=== PATIENT | male | born 1945 | race Caucasian/White ===

== ENCOUNTER 2017-05-21 18:12 | Inpatient (IN) | payer MEDICARE, OTHER ==
[~2017-05-21] VITALS: Ht 175.3 cm; Wt 76.3 kg
--- NOTE | 2017-05-21 18:19 | NUR ---
C/O BUE SHARP TINGLING PAIN. BS OVER 600 FROM HOME STATED BY KISHORE. NON COMPLIANT OF MEDS. PLACED ON MONITOR NATALIO KEE ORDER
[2017-05-21] MEDS ORDERED: IV NS 0.9% 1,000 ML BAG IV ONE (18:30)
--- NOTE | 2017-05-21 18:41 | NUR ---
LAC #18 IV ACCESS. BLOOD SAMPLE COLLECTED SENT TO LAB
--- NOTE | 2017-05-21 18:42 | NUR ---
EKG IN PROGRESS
[2017-05-21 18:54] LABS: BASOPHILS % (AUTO) 0.3 % (0.0-2.0); EOSINOPHILS # (AUTO) 0.2 /CMM (0.0-0.7); EOSINOPHILS % (AUTO) 2.3 % (0.0-6.0); HEMATOCRIT 35 % (39-51); HEMOGLOBIN 12.3 g/dL (13.5-17.5); LYMPHOCYTES # (AUTO) 1.5 /CMM (0.8-4.8); LYMPHOCYTES % (AUTO) 17.9 % (20.0-44.0); MEAN CORPUSCULAR HEMOGLOBIN 29 PG (26.0-33.0); MEAN CORPUSCULAR HGB CONC 35 g/dl (31.0-36.0); MEAN CORPUSCULAR VOLUME 84 fL (80-96); MONOCYTES # (AUTO) 0.5 /CMM (0.1-1.30); NEUTROPHILS # (AUTO) 6.4 /CMM (1.8-8.9); NEUTROPHILS % (AUTO) 73.5 % (43.0-81.0); PLATELET COUNT (AUTO) 173 /CMM (150-450); RDW COEFFICIENT OF VARIATION 12.1 (11.5-15.0); RED BLOOD CELL COUNT(AUTO) 4.21 MIL/uL (4.5-6.0); WHITE BLOOD COUNT (AUTO) 8.6 K/uL (4.3-11.0)
[2017-05-21 19:11] LABS: ALANINE AMINOTRANSFERASE 15 U/L (12-78); ALBUMIN 2.4 g/dL (3.4-5.0); ALKALINE PHOSPHATASE 186 U/L (46-116); ASPARTATE AMINOTRANSFERASE 12 U/L (15-37); BILIRUBIN,TOTAL 0.3 mg/dL (0.2-1.0); CALCIUM, SERUM 8.8 mg/dL (8.5-10.1); CARBON DIOXIDE 26 mmol/L (21-32); CHLORIDE 93 mmol/L (98-107); CREATININE 3.1 mg/dL (0.6-1.3); LIPASE 1248 U/L (73-393); POTASSIUM 4.4 mmol/L (3.5-5.1); SODIUM SERUM 126 mmol/L (136-145); TOTAL PROTEIN, SERUM 6.6 g/dL (6.4-8.2); UREA NITROGEN, BLOOD 57 mg/dL (7-18)
[2017-05-21 19:13] LABS: GLUCOSE 490 mg/dL (74-106); TROPONIN I < 0.017 ng/mL (0.00-0.056)
--- NOTE | 2017-05-21 19:15 | NUR ---
REPORT REC'D FROM REBECA [place] FOR TARAH. DR. WAN AT THE BEDSIDE SPEAKING TO THE PT.
--- NOTE | 2017-05-21 19:20 | NUR ---
PT IN CT.
[2017-05-21] MEDS ORDERED: INSULIN REGULAR, HUMAN 100 UNIT/ML 10 ML VIAL ONE (19:23)
--- NOTE | 2017-05-21 19:25 | NUR ---
PT RETURNED FROM CT.
[2017-05-21] MEDS ORDERED: INSULIN REGULAR, HUMAN 100 UNIT/ML 10 ML VIAL IV ONE (19:30)
--- NOTE | 2017-05-21 19:34 | NUR ---
CALLED [employer] VICE PRESIDENT AND PORTFOLIO MANAGER WAS PAGED.
[2017-05-21 19:44] LABS: APPEARANCE,URINE Clear (CLEAR); BILIRUBIN,URINE Negative (NEGATIVE); BLOOD, URINE Small Ery/uL (NEGATIVE); COLOR,URINE Yellow (YELLOW); KETONES,URINE Negative (NEGATIVE); LEUKOCYTE ESTERASE ,URINE Negative (NEGATIVE); NITRITE, URINE Negative (NEGATIVE); PROTEIN,URINE >=300 mg/dl (NEGATIVE); UGLUCOSE 500 MG/DL mg/dL (NEGATIVE); UROBILINOGEN,URINE 0.2 EU/dL (0.2)
[2017-05-21 19:54] LABS: BACTERIA,URINE Moderate /HPF (None Seen); SQUAMOUS EPITHELIAL CELL,UR Few /HPF (None Seen); WBC,URINE 0-2 /HPF (0-3)
[2017-05-21 19:55] LABS: URINE AMORPHOUS URATE Moderate /HPF (None Seen)
--- NOTE | 2017-05-21 20:10 | NUR ---
CALLING REPORT TO MS NURSE.
--- NOTE | 2017-05-21 20:18 | NUR ---
REPORT GIVEN TO REBECA LUONG.
[2017-05-21] MEDS ORDERED: MAG HYDROX/AL HYDROX/SIMETH 30 ML UDC PO PRN ×2 (20:30→20:45)
[2017-05-21] MEDS ORDERED: ACETAMINOPHEN 325 MG TABLET PO PRN ×2 (20:30→20:45)
[2017-05-21] MEDS ORDERED: HYDROCODONE/APAP 5/325MG 1 EACH TABLET PO PRN (20:30)
[2017-05-21] MEDS ORDERED: ONDANSETRON HCL/PF 4 MG/2 ML VIAL IVP PRN ×2 (20:30→20:45)
[2017-05-21] MEDS ORDERED: Z GUARD REMEDY 2 OZ OINT TP PRN (20:30)
[2017-05-21] MEDS ORDERED: MAGNESIUM HYDROXIDE 30 ML UDC PO PRN ×2 (20:30→20:45)
[2017-05-21 21:00] VITALS: BP 155/82
--- NOTE | 2017-05-21 21:15 | NUR ---
RN NOTES NEW ADMISSION ARRIVED FROM UNIT, ALERT AND ORIENTED X3, ITALIAN SPEAKING ONLY, NO SOB, NO RESPIRATORY DISTRESS, TOLERATING ROOM AIR, SPO2 98%, AFEBRILE, ON AUSCULTATION, LUNG SOUNDS ARE CLEAR IN ALL ROSALES, ABDOMEN SOFT AND NON-TENDER, ACTIVE BOWEL SOUNDS, NO TENDERNESS, NO S/S OF HYPERGLYCEMIA, LEFT AC PERIPHERAL LINE IS PATENT AND SECURED WITH DRESSING, SKIN INTACT TO SACRAL AREA, MULTIPLE SCRATCH TIPTON WITH SCABS NOTED TO BLE, NO EDEMA, CONTINENT OF BOWEL AND BLADDER, ABLE TO AMBULATE USING ONE POINT CANE, DEMONSTRATED USE OF CALL LIGHT, WILL CONTINUE TO MONITOR.
[2017-05-21 21:30] VITALS: BP 155/82
[2017-05-21] MEDS: IV NS 0.9% 1,000 ML IV PRN (22:03)
[2017-05-21] MEDS ORDERED: ASPI81TA2 PO (23:04)
[2017-05-21] MEDS ORDERED: FURO-144 PO (23:04)
[2017-05-21] MEDS ORDERED: TAMS-12 PO (23:04)
[2017-05-21] MEDS ORDERED: INSU3INS6 SUBCUT (23:04)
[2017-05-21] MEDS ORDERED: CARV12.52 PO (23:04)
--- NOTE | 2017-05-21 23:06 | NUR ---
RN NOTES NOTIFIED DR. BENÍTEZ REGARDING HOME MEDICATIONS. PER MD, SHOULD INPUT THEM FIRST IN THE COMPUTER. ALSO NOTIFIED FOR ELEVATED BP OF 159/83. NEW ORDERS OF LEVEMIR 20 UNITS AND AGGRESSIVE ISS, ORDERS NOTED AND CARRIED OUT.
[2017-05-21] MEDS: BLOOD SUGAR DIAGNOSTIC 1 EACH STRIP IN SCH (23:16)
[2017-05-21] MEDS: *INSULIN REGULAR(HUMULIN R)HUM 100 UNIT/ML VIAL SQ PRN (23:18)
[2017-05-21] MEDS: INSULIN DETEMIR 100 UNIT/ML CARTRIDGE SQ SCH (23:21)
[2017-05-21] MEDS ORDERED: DEXTROSE 50%-WATER 50 ML DISP.SYRIN IV PRN (23:30)
[2017-05-21] MEDS ORDERED: TAMSULOSIN 0.4 MG CAP.SR.24H ONE (23:40)
[2017-05-21] MEDS ORDERED: CARVEDILOL 12.5 MG TABLET ONE (23:41)
[2017-05-21] MEDS: CARVEDILOL 12.5 MG TABLET PO SCH (23:42)
[2017-05-21] MEDS: TAMSULOSIN 0.4 MG CAP.SR.24H PO SCH (23:42)
--- NOTE | 2017-05-21 23:48 | NUR ---
RN NOTES PERFORMED ACCUCHECK, BG 360 MG/DL, PROVIDED SNACKS, PATIENT ABLE TO EAT.
--- NOTE | 2017-05-22 06:40 | NUR ---
RN NOTES PATIENT IS ALERT AND AWAKE, NO SOB, NO DISTRESS, DENIES ANY PAIN AT THIS TIME, BG 318 MG/DL, WILL GIVE INSULIN 16 UNITS. NO S/S OF HYPERGLYCEMIA. LEFT AC PERIPHERAL LINE IS PATENT AND INFUSING WELL. NEEDS ATTENDED, CALL LIGHT WITHIN REACH.
[2017-05-22] MEDS: BLOOD SUGAR DIAGNOSTIC 1 EACH STRIP IN SCH ×4 (06:57→21:32)
[2017-05-22] MEDS: INSULIN REGULAR, HUMAN 100 UNIT/ML 3 ML VIAL SQ PRN ×3 (06:58→17:49)
[2017-05-22 07:13] LABS: BASOPHILS % (AUTO) 0.4 % (0.0-2.0); EOSINOPHILS # (AUTO) 0.3 /CMM (0.0-0.7); EOSINOPHILS % (AUTO) 2.8 % (0.0-6.0); HEMATOCRIT 35 % (39-51); HEMOGLOBIN 11.8 g/dL (13.5-17.5); LYMPHOCYTES # (AUTO) 1.9 /CMM (0.8-4.8); LYMPHOCYTES % (AUTO) 20.7 % (20.0-44.0); MEAN CORPUSCULAR HEMOGLOBIN 29 PG (26.0-33.0); MEAN CORPUSCULAR HGB CONC 34 g/dl (31.0-36.0); MEAN CORPUSCULAR VOLUME 86 fL (80-96); MONOCYTES # (AUTO) 0.5 /CMM (0.1-1.30); NEUTROPHILS # (AUTO) 6.3 /CMM (1.8-8.9); NEUTROPHILS % (AUTO) 70.1 % (43.0-81.0); PLATELET COUNT (AUTO) 147 /CMM (150-450); RDW COEFFICIENT OF VARIATION 13.1 (11.5-15.0); RED BLOOD CELL COUNT(AUTO) 4.07 MIL/uL (4.5-6.0)
[2017-05-22 07:37] LABS: CHOLESTEROL 178 mg/dL (<200); HDL CHOLESTEROL 37 mg/dL (40-60); LDL 47 mg/dL (0-99); THYROID STIMULATING HORMONE 0.431 uIU/mL (0.358-3.74); TRIGLYCERIDES 678 mg/dL (30-150)
[2017-05-22 07:40] LABS: ALANINE AMINOTRANSFERASE 16 U/L (12-78); ALKALINE PHOSPHATASE 154 U/L (46-116); ASPARTATE AMINOTRANSFERASE 16 U/L (15-37); BILIRUBIN,TOTAL 0.2 mg/dL (0.2-1.0); CALCIUM, SERUM 9.1 mg/dL (8.5-10.1); CARBON DIOXIDE 21 mmol/L (21-32); CHLORIDE 102 mmol/L (98-107); CREATININE 2.4 mg/dL (0.6-1.3); GLUCOSE 310 mg/dL (74-106); LIPASE 393 U/L (73-393); MAGNESIUM 1.9 mg/dL (1.8-2.4); POTASSIUM 3.9 mmol/L (3.5-5.1); SODIUM SERUM 133 mmol/L (136-145); TOTAL PROTEIN, SERUM 5.8 g/dL (6.4-8.2); UREA NITROGEN, BLOOD 50 mg/dL (7-18)
--- NOTE | 2017-05-22 07:58 | NUR ---
RN OPENING NOTES RN OPENING NOTES RECEIVED PATIENT RESTING COMFORTABLY. AOX4. BARBADIAN SPEAKING. DENIES ANY PAIN. DENIES CP OR SOB. IV ACCESS PATENT AND INTACT LAC 18G NS @75ML/HR. RESPIRATIONS EVEN AND UNLABORED. NO ACUTE DISTRESS. BED LOCKED IN THE LOWEST POSITION WITH SIDE RAILS UP X2. CALL LIGHT WITHIN REACH. WILL CONTINUE TO MONITOR, ASSESS AND EDUCATE PATIENT THROUGHOUT SHIFT.
[2017-05-22 08:00] VITALS: BP 149/93
[2017-05-22] MEDS: ASPIRIN 81 MG TAB.CHEW PO SCH (08:44)
[2017-05-22] MEDS: CARVEDILOL 12.5 MG TABLET PO SCH ×2 (08:45→17:50)
--- NOTE | 2017-05-22 09:21 | NUR ---
RN NOTES IV DISLODGED. WILL PLACE NEW IV ACCESS.
--- NOTE | 2017-05-22 11:00 | NUR ---
RN NOTES NEW IV PLACED IN THE LEFT AC 20G. PATENT AND INTACT NO S/S OF INFILTRATION. ONE ATTEMPT TOLERATED WELL. NS AT 75ML/HR. WILL CONTINUE TO MONITOR.
[2017-05-22 16:00] VITALS: BP 157/86
[2017-05-22 19:25] LABS: APPEARANCE,URINE CLEAR (CLEAR); BILIRUBIN,URINE NEGATIVE (NEGATIVE); BLOOD, URINE 1+ Ery/uL (NEGATIVE); COLOR,URINE YELLOW (YELLOW); KETONES,URINE NEGATIVE (NEGATIVE); LEUKOCYTE ESTERASE ,URINE NEGATIVE (NEGATIVE); NITRITE, URINE NEGATIVE (NEGATIVE); PROTEIN,URINE 3+ mg/dl (NEGATIVE); UGLUCOSE 2+ mg/dL (NEGATIVE); UROBILINOGEN,URINE 0.2 EU/dL (0.2)
--- NOTE | 2017-05-22 19:30 | NUR ---
MS RN INITIAL NOTES RECEIVED PT IN BED AWAKE,VERBALLY RESPONSIVE,SWISS SPEAKING.ON ROOM AIR NO SOB,RESPIRATIONS EVEN, UNLABORED. DENIES ANY PAIN OR DISCOMFORT AT THIS TIME.CALL LIGHT WITHIN REACH.ATTENDED ALL NEEDS.WILL CONTINUE TO MONITOR ACCORDINGLY
[2017-05-22 19:38] LABS: BACTERIA,URINE 1+ /HPF (None Seen); SQUAMOUS EPITHELIAL CELL,UR 0-2 /HPF (None Seen)
--- NOTE | 2017-05-22 19:39 | NUR ---
RN CLOSING NOTES PATIENT RESTING COMFORTABLY IN BED. PATIENT DENIES ANY PAIN, SOB OR CP. AOX4. IV ACCESS PATENT AND INTACT. RESPIRATIONS EVEN AND UNLABORED. NO ACUTE DISTRESS NOTED. BED LOCKED IN THE LOWEST POSITION WITH SIDE RAILS UP. CALL LIGHT WITHIN REACH. ALL NEEDS MET. ALL MEDS GIVEN APPROPRIATE. WILL ENDORSE TO NIGHT RN FOR TARAH.
[2017-05-22 19:43] LABS: CREATININE, URINE 49.2 MG/DL (30.0-125.0)
[2017-05-22] MEDS: IV NS 0.9% 1,000 ML IV PRN (19:45)
[2017-05-22 20:50] LABS: URINE TOTAL PROTEIN 496.2 mg/dL (0-11.9)
[2017-05-22 21:22] LABS: EOSINOPHIL,URINE None Seen
[2017-05-22] MEDS: TAMSULOSIN 0.4 MG CAP.SR.24H PO SCH (21:32)
[2017-05-22 21:44] VITALS: BP 168/93
[2017-05-22] MEDS: INSULIN DETEMIR 100 UNIT/ML CARTRIDGE SQ SCH (21:46)
[2017-05-22] MEDS: *INSULIN REGULAR(HUMULIN R)HUM 100 UNIT/ML VIAL SQ PRN (21:49)
[2017-05-22 22:00] VITALS: BP 150/68
[2017-05-22] MEDS ORDERED: ZOLPIDEM TARTRATE 5 MG TABLET PO PRN (22:00)
--- NOTE | 2017-05-22 23:20 | NUR ---
Recieved pt from Rn. A/O x3 Viraj speaking on R/a IV N.S 09% at 75 cchr to left Ac no edema or redness to iv site. Siderails up call light within reach. bed in lowest postion wheels locked. Denies of any distress.
--- NOTE | 2017-05-23 04:36 | NUR ---
Remain lying in bed denies of any distress Iv patent.
[2017-05-23 06:28] LABS: BASOPHILS % (AUTO) 0.3 % (0.0-2.0); EOSINOPHILS # (AUTO) 0.2 /CMM (0.0-0.7); EOSINOPHILS % (AUTO) 2.3 % (0.0-6.0); HEMATOCRIT 35 % (39-51); HEMOGLOBIN 12.1 g/dL (13.5-17.5); LYMPHOCYTES # (AUTO) 2.2 /CMM (0.8-4.8); LYMPHOCYTES % (AUTO) 24.1 % (20.0-44.0); MEAN CORPUSCULAR HEMOGLOBIN 29 PG (26.0-33.0); MEAN CORPUSCULAR HGB CONC 35 g/dl (31.0-36.0); MEAN CORPUSCULAR VOLUME 85 fL (80-96); MONOCYTES # (AUTO) 0.6 /CMM (0.1-1.30); MONOCYTES % (AUTO) 5.9 % (2.0-12.0); NEUTROPHILS # (AUTO) 6.3 /CMM (1.8-8.9); NEUTROPHILS % (AUTO) 67.4 % (43.0-81.0); PLATELET COUNT (AUTO) 152 /CMM (150-450); RDW COEFFICIENT OF VARIATION 13.4 (11.5-15.0); RED BLOOD CELL COUNT(AUTO) 4.11 MIL/uL (4.5-6.0); WHITE BLOOD COUNT (AUTO) 9.3 K/uL (4.3-11.0)
[2017-05-23 06:48] LABS: ALANINE AMINOTRANSFERASE 16 U/L (12-78); ALKALINE PHOSPHATASE 139 U/L (46-116); ASPARTATE AMINOTRANSFERASE 15 U/L (15-37); BILIRUBIN,TOTAL 0.2 mg/dL (0.2-1.0); CALCIUM, SERUM 8.6 mg/dL (8.5-10.1); CARBON DIOXIDE 24 mmol/L (21-32); CHLORIDE 110 mmol/L (98-107); CREATININE 1.9 mg/dL (0.6-1.3); GLUCOSE 171 mg/dL (74-106); LIPASE 310 U/L (73-393); MAGNESIUM 1.9 mg/dL (1.8-2.4); PHOSPHORUS 3.4 mg/dL (2.5-4.9); POTASSIUM 4.1 mmol/L (3.5-5.1); SODIUM SERUM 142 mmol/L (136-145); TOTAL PROTEIN, SERUM 5.7 g/dL (6.4-8.2); UREA NITROGEN, BLOOD 35 mg/dL (7-18)
[2017-05-23] MEDS: BLOOD SUGAR DIAGNOSTIC 1 EACH STRIP IN SCH ×3 (06:59→16:29)
[2017-05-23] MEDS: INSULIN REGULAR, HUMAN 100 UNIT/ML 3 ML VIAL SQ PRN ×3 (07:03→16:32)
[2017-05-23 07:10] LABS: CREATINE KINASE, TOTAL 77 U/L (39-308)
--- NOTE | 2017-05-23 07:45 | NUR ---
MS RN NOTES RECEIVED REPORT FROM STEWART/REBECA. PATIENT IN BED, AWAKE. A/O X3 SOUTH AFRICAN SPEAKING. PATIENT APPEARS COMFORTABLE, DENIES ANY DISCOMFORT. IVC IN LEFT AC G18 PATENT AND INTACT, IV NS INFUSING AT 75ML/HR. CALL LIGHT WITHIN REACH. WILL CONT TO MONITOR.
[2017-05-23 08:00] VITALS: BP 153/83
--- NOTE | 2017-05-23 08:00 | NUR ---
MS RN NOTES RECEIVED PATIENT IN BED, AWAKE. A/O X3 PERSIAN SPEAKING. PATIENT APPEARS COMFORTABLE, DENIES ANY DISCOMFORT. IVC IN LEFT AC G18 PATENT AND INTACT, IV NS INFUSING AT 75ML/HR. CALL LIGHT WITHIN REACH. WILL CONT TO MONITOR.
[2017-05-23] MEDS: CARVEDILOL 12.5 MG TABLET PO SCH ×2 (09:13→16:29)
[2017-05-23] MEDS: ASPIRIN 81 MG TAB.CHEW PO SCH (09:13)
--- NOTE | 2017-05-23 10:03 | NUR ---
REPORT GIVEN TO HELADIO/REBECA FOR CONTINUITY OF CARE.
[2017-05-23 16:00] VITALS: BP 153/68
[2017-05-23 16:29] VITALS: BP 153/68
--- NOTE | 2017-05-23 17:30 | NUR ---
DISCHARGE INSTRUCTIONS,MED RECONCILIATION,MED AND HEALTH TEACHING GIVEN TO PT WITH BLOOD SUGAR CHECKS AND INSULIN ADMINISTRATION PER SLIDING SCALE AND HS LANTUS WITH RETURN DEMO GIVEN BY PT'S SON,NANETTE.FAMILY AT BEDSIDE.DISCHARGED PT HOME WITH STABLE V/S.DENIES ANY PAIN OR DISTRESS.
[2017-05-24 12:15] LABS: PTH, INTACT 83 pg/mL (15-65)
[2017-05-25 08:18] LABS: *SPE A/G RATIO 0.8 (0.7-1.7); *SPE ALBUMIN 2.3 g/dL (2.9-4.4); *SPE ALPHA-1-GLOBULIN 0.2 g/dL (0.0-0.4); *SPE ALPHA-2-GLOBULIN 1.2 g/dL (0.4-1.0); *SPE BETA GLOBULIN 0.9 g/dL (0.7-1.3); *SPE GLOBULIN, TOTAL 2.8 g/dL (2.2-3.9); *SPE M-SPIKE Not Observed g/dL (Not Observed); *SPEGAMMA GLOBULIN 0.6 g/dL (0.4-1.8)
== END 2017-05-23 17:30 | disposition home or self-care (01) | DRG 438 ==
LOC: ER 18:14 → MED 21:01
PROVIDERS: ADMIT Internal Medicine; ATTEND Internal Medicine
DX: K85.90 Acute pancreatitis without necrosis or infection, unspecified (principal); N17.0 Acute kidney failure with tubular necrosis; E87.1 Hypo-osmolality and hyponatremia; E78.5 Hyperlipidemia, unspecified; E86.0 Dehydration; I12.9 Hypertensive chronic kidney disease with stage 1 through stage 4 chronic kidney disease, or unspecified chronic kidney disease; K21.9 Gastro-esophageal reflux disease without esophagitis; N18.9 Chronic kidney disease, unspecified; N40.0 Benign prostatic hyperplasia without lower urinary tract symptoms; E11.65 Type 2 diabetes mellitus with hyperglycemia; E11.40 Type 2 diabetes mellitus with diabetic neuropathy, unspecified; Z79.4 Long term (current) use of insulin; K57.30 Diverticulosis of large intestine without perforation or abscess without bleeding; R16.0 Hepatomegaly, not elsewhere classified; E11.22 Type 2 diabetes mellitus with diabetic chronic kidney disease
CPT/HCPCS: 36415; 80048-TC; 80053-TC; 80061-TC; 80076-TC; 81000-TC; 82550-TC; 82570-TC; 82962-TC; 83690-TC; 83735-TC; 83970; 84100-TC; 84155; 84155-TC; 84165; 84300-TC; 84443-TC; 84484-TC; 85025-TC; 87081-TC; 87086-TC; A4606; J1815; J7030; Z7610

== ENCOUNTER 2017-10-27 16:36 | Inpatient (IN) | payer MEDICARE, OTHER ==
[~2017-10-27] VITALS: Ht 165.1 cm; Wt 79.4 kg
[~2017-10-27 16:36] MED LIST: ASPI-1169 PO; CARV12.52 PO; FURO-144 PO; INSU3INS6 SUBCUT; TAMS-12 PO
--- NOTE | 2017-10-27 16:36 | NUR ---
BIB FAMILY C/O MIDSTERNAL CP RADIATES TO BACK AND R ARM X 3 DAYS, ALSO C/O SOB. PLACED ON MONITOR. AWAITING MD ORDER
[2017-10-27] MEDS ORDERED: ASPIRIN 325 MG TABLET PO ONE (17:00)
[2017-10-27] MEDS ORDERED: FUROSEMIDE 40 MG/4 ML VIAL IV ONE (17:00)
[2017-10-27] MEDS ORDERED: ASPIRIN 325 MG TABLET ONE (17:05)
[2017-10-27] MEDS ORDERED: FUROSEMIDE 40 MG/4 ML VIAL ONE (17:05)
[2017-10-27 17:19] LABS: INR 0.92 (0.85-1.15)
[2017-10-27 17:24] LABS: TROPONIN I < 0.017 ng/mL (0.00-0.056)
[2017-10-27 17:29] LABS: ALANINE AMINOTRANSFERASE 17 U/L (12-78); ALKALINE PHOSPHATASE 141 U/L (46-116); ASPARTATE AMINOTRANSFERASE 18 U/L (15-37); B-TYPE NATRIURETIC PEPTIDE 1209 PG/ML (0-125); BILIRUBIN,DIRECT 0.1 mg/dL (0.0-0.2); BILIRUBIN,TOTAL 0.4 mg/dL (0.2-1.0); CALCIUM, SERUM 7.8 mg/dL (8.5-10.1); CARBON DIOXIDE 23 mmol/L (21-32); CHLORIDE 101 mmol/L (98-107); CREATININE 3.8 mg/dL (0.6-1.3); GLUCOSE 306 mg/dL (74-106); POTASSIUM 5.2 mmol/L (3.5-5.1); SODIUM SERUM 133 mmol/L (136-145); TOTAL PROTEIN, SERUM 6.2 g/dL (6.4-8.2); UREA NITROGEN, BLOOD 48 mg/dL (7-18)
[2017-10-27 17:32] LABS: BASOPHILS % (AUTO) 0.4 % (0.0-2.0); EOSINOPHILS % (AUTO) 1.9 % (0.0-6.0); HEMATOCRIT 31 % (39-51); HEMOGLOBIN 10.8 g/dL (13.5-17.5); LYMPHOCYTES # (AUTO) 0.7 /CMM (0.8-4.8); LYMPHOCYTES % (AUTO) 11.8 % (20.0-44.0); MEAN CORPUSCULAR HGB CONC 35 g/dl (31.0-36.0); MEAN CORPUSCULAR VOLUME 84 fL (80-96); MONOCYTES # (AUTO) 0.6 /CMM (0.1-1.30); MONOCYTES % (AUTO) 9.4 % (2.0-12.0); NEUTROPHILS # (AUTO) 4.8 /CMM (1.8-8.9); NEUTROPHILS % (AUTO) 76.5 % (43.0-81.0); PLATELET COUNT (AUTO) 151 /CMM (150-450); RDW COEFFICIENT OF VARIATION 13.4 (11.5-15.0); RED BLOOD CELL COUNT(AUTO) 3.69 MIL/uL (4.5-6.0); WHITE BLOOD COUNT (AUTO) 6.3 K/uL (4.3-11.0)
[2017-10-27] MEDS ORDERED: ZOLPIDEM TARTRATE 5 MG TABLET PO PRN (18:00)
[2017-10-27] MEDS ORDERED: Z GUARD REMEDY 2 OZ OINT TP PRN (18:00)
[2017-10-27] MEDS ORDERED: MORPHINE SULFATE INJ 4 MG/ML DISP.SYRIN IV PRN (18:00)
[2017-10-27] MEDS ORDERED: MAGNESIUM HYDROXIDE 30 ML UDC PO PRN (18:00)
[2017-10-27] MEDS ORDERED: ACETAMINOPHEN 325 MG TABLET PO PRN (18:00)
[2017-10-27] MEDS ORDERED: MAG HYDROX/AL HYDROX/SIMETH 30 ML UDC PO PRN (18:00)
--- NOTE | 2017-10-27 18:11 | NUR ---
GAVE REPORT TO CELINA JOSE CHEST PAIN ADMITTING DR SALDAÑA TELEMETRY
[2017-10-27] MEDS ORDERED: hydrALAZINE HCL 25 MG TABLET PO PRN (18:30)
[2017-10-27] MEDS ORDERED: DEXTROSE 50%-WATER 50 ML DISP.SYRIN IV PRN (18:30)
[2017-10-27] MEDS ORDERED: NITROGLYCERIN 0.4 MG/TAB BOTTLE SL PRN (18:30)
--- NOTE | 2017-10-27 19:01 | NUR ---
HAZARDOUS WASTE TECHNICIAN AT BEDSIDE
--- NOTE | 2017-10-27 19:55 | NUR ---
ADMISSION NOTES: RECEIVED REPORT FROM RN CELSO, PT ADMITTED FOR CHF AND CHEST PAIN, PT BROUGHT TO THE UNIT VIA GURNEY, FAMILY AT BED SIDE, PT ABLE TO AMBULATE WITH CANE, PT IS A/O X3 BENGALI SPEAKING ONLY, PLACED ON 2L O2 VIA NC, NOTED WHEEZING, PT REQUESTING FOR BREATHING TREATMENT. INFORMED RT HUNTER. VS TAKEN AND RECORDED. PT HAS LEFT AC G 18, PATENT AND FLUSHING WELL, ON HL. PLACED ON TELE MONITORING, SINUS RHYTHM HR 85, PT DENIES ANY CHEST PAIN AT THIS TIME, BUT C/O SOB, TRANSLATED BY FAMILY AT BED SIDE, ALSO PT'S FAMILY CLAIMED THAT PT BEEN ADMITTED TO THE HOSPITAL 2MONTHS AGO FOR CHF. DISCUSSED WITH FAMILY AND PT REGARDING PLAN OF CARE AND DIAGNOSIS OF THE PT. URINAL PLACED WITHIN REACH. ORIENTED PT TO UNIT POLICY AND HOURLY ROUNDING, USE OF CALL LIGHT. INVENTORY OF BELONGING COMPLETED BY ASSEMBLED WOOD PRODUCTS REPAIRER. SKIN CHECKED PERFORMED, AND NO SKIN ISSUES NOTED. SAFETY PRECAUTIONS FOR FALL INITIATE, CALL LIGHT IN REACH, WILL CONTINUE MONITORING PT.
[2017-10-27] MEDS: ALBUTEROL FS 2.5 MG/3 ML VIAL.NEB NEB PRN (19:59)
[2017-10-27 20:00] VITALS: BP 192/85
[2017-10-27 20:17] LABS: THYROID STIMULATING HORMONE 0.57 uIU/mL (0.358-3.74)
--- NOTE | 2017-10-27 20:20 | NUR ---
PRN APRESOLINE FOR BP 192/85: PT'S BLOOD PRESSURE IS ELEVATED,INITIALLY ITS 195/85 HR 88, RECHECK AFTER 30MINS AND RESULT IS 192/85 HR 88, PT DENIES ANY CHEST PAIN, STATED ITS MORE OF SHORTNESS OF BREATH AND PRESSURE, PRN APRESOLINE 25MG PO TABLET ADMINISTERED TO THE PT AT THIS TIME. ALSO CHECKED PT'S BLOOD SUGAR AND REVEAL 303, PT'S LAST MEAL WAS YESTERDAY ACCORDING TO PT AND FAMILY.
[2017-10-27] MEDS: BLOOD SUGAR DIAGNOSTIC 1 EACH STRIP VI SCH (20:42)
[2017-10-27] MEDS: *INSULIN REGULAR(HUMULIN R)HUM 100 UNIT/ML VIAL SQ PRN (20:44)
[2017-10-27] MEDS: INSULIN GLARGINE, 100 UNIT/ML CARTRIDGE SQ SCH (20:45)
--- NOTE | 2017-10-27 20:49 | NUR ---
BLOOD SUGAR 303: PT'S BLOOD SUGAR IS303, 8UBNITS OF INSULIN GIVEN PER SLIDING SCALE, PT ON CARDIAC DIET, ALSO WANTS TO EAT NOW HE'S LAST MEAL INTAKE WAS YESTERDAY MORNING. PER MD OKAY TO GIVE COVERAGE NOW AND LANTUS.
--- NOTE | 2017-10-27 21:00 | NUR ---
RNNOTES: PROVIDED SNACK TO THE PT PER PT'S REQUEST, EGG SAND WHICH AND CRANBERRY JUICE, PLACED ON HIGH LANIER'S POSITION, ASPIRATION PROTOCOL INITIATED, PT ATE SNACK 100%
[2017-10-27 21:25] VITALS: BP 162/97
--- NOTE | 2017-10-27 21:30 | NUR ---
RN NOTES: INFORMED PT REGARDING FLUID RESTRICTION, ONLY 1200ML PER DAY, MEANING 600ML PER 12HR SHIFT. PT UNDERSTAND AND AGREE. PT WAS GIVEN 600ML PITCHER OF WATER.
[2017-10-27] MEDS: TAMSULOSIN 0.4 MG CAP.SR.24H PO SCH (22:32)
[2017-10-27 22:34] VITALS: BP 160/81
[2017-10-28] VITALS (7 sets, daily range): BP systolic 136–187; BP diastolic 78–89
[2017-10-28 00:52] LABS: APPEARANCE,URINE CLEAR (CLEAR); BILIRUBIN,URINE NEGATIVE (NEGATIVE); BLOOD, URINE 1+ Ery/uL (NEGATIVE); COLOR,URINE YELLOW (YELLOW); KETONES,URINE NEGATIVE (NEGATIVE); LEUKOCYTE ESTERASE ,URINE NEGATIVE (NEGATIVE); NITRITE, URINE NEGATIVE (NEGATIVE); PH,URINE 6.5 (5.0-8.0); PROTEIN,URINE 3+ mg/dl (NEGATIVE); UGLUCOSE 2+ mg/dL (NEGATIVE); UROBILINOGEN,URINE 0.2 EU/dL (0.2)
[2017-10-28 00:57] LABS: BACTERIA,URINE None seen /HPF (None Seen); RBC,URINE 0-2 /HPF (0-2); SQUAMOUS EPITHELIAL CELL,UR Rare /HPF (None Seen); WBC,URINE 0-2 /HPF (0-3)
--- NOTE | 2017-10-28 03:14 | NUR ---
rn notes: pt denies any chest pain at this time, still noted with wheezing
[2017-10-28] MEDS: ALBUTEROL FS 2.5 MG/3 ML VIAL.NEB NEB PRN ×2 (03:33→08:09)
[2017-10-28] MEDS: BLOOD SUGAR DIAGNOSTIC 1 EACH STRIP VI SCH ×4 (05:58→21:33)
[2017-10-28] MEDS: INSULIN REGULAR, HUMAN 100 UNIT/ML 3 ML VIAL SQ PRN ×3 (06:00→17:26)
--- NOTE | 2017-10-28 06:00 | NUR ---
BS 263: BLOOD SUGAR 263, 9UNITS OF INSULIN GIVEN PER SLIDING SCALE, PT ON CARDIAC DIET
[2017-10-28 06:43] LABS: BASOPHILS % (AUTO) 0.5 % (0.0-2.0); EOSINOPHILS % (AUTO) 1.4 % (0.0-6.0); HEMATOCRIT 29 % (39-51); LYMPHOCYTES # (AUTO) 0.8 /CMM (0.8-4.8); LYMPHOCYTES % (AUTO) 13.4 % (20.0-44.0); MEAN CORPUSCULAR HGB CONC 35 g/dl (31.0-36.0); MEAN CORPUSCULAR VOLUME 85 fL (80-96); MONOCYTES # (AUTO) 0.7 /CMM (0.1-1.30); MONOCYTES % (AUTO) 12.7 % (2.0-12.0); NEUTROPHILS # (AUTO) 4.1 /CMM (1.8-8.9); PLATELET COUNT (AUTO) 129 /CMM (150-450); RDW COEFFICIENT OF VARIATION 13.6 (11.5-15.0); RED BLOOD CELL COUNT(AUTO) 3.39 MIL/uL (4.5-6.0); WHITE BLOOD COUNT (AUTO) 5.8 K/uL (4.3-11.0)
[2017-10-28 06:46] LABS: CALCIUM, SERUM 7.5 mg/dL (8.5-10.1); CARBON DIOXIDE 22 mmol/L (21-32); CHLORIDE 101 mmol/L (98-107); CREATININE 3.6 mg/dL (0.6-1.3); GLUCOSE 288 mg/dL (74-106); MAGNESIUM 1.6 mg/dL (1.8-2.4); PHOSPHORUS 5.6 mg/dL (2.5-4.9); POTASSIUM 4.7 mmol/L (3.5-5.1); SODIUM SERUM 133 mmol/L (136-145); UREA NITROGEN, BLOOD 52 mg/dL (7-18)
[2017-10-28 06:48] LABS: CHOLESTEROL 178 mg/dL (<200); HDL CHOLESTEROL 41 mg/dL (40-60); LDL 82 mg/dL (0-99); TRIGLYCERIDES 347 mg/dL (30-150)
--- NOTE | 2017-10-28 06:50 | NUR ---
rn closing notes: pt sitting in bed, a/o x3 remains on 2l oxygen via nc, denies any chest pain or discomfort at this time. iv access remains patent and flushing well, on hl. remains sinus rhythm hr 68. will relay to rn to hold breakfast till seen by scorer helper, for cardio consult today, echo complete, vs remains stable, needs attended, remains on fluid restriction.safety precautions for fall remains engaged, call light in reach, will endorse to day rn for celio.
--- NOTE | 2017-10-28 07:12 | NUR ---
MS RN OPENING NOTES RECEIVED PT FROM NIGHTSHIFT NURSE IN STABLE CONDITION. PT IS A/O X3. SOB NOTED. PT TO RECEIVE PRN BREATHING TREATMENT. PT ON 2L VIA NC AND SATING WELL. IV TO LEFT AC NOTED TO BE PATENT AND INTACT. NO REDNESS OR SIGNS OF INFILTRATION NOTED. BED IN LOW LOCKED POSITION, SIDE RAILS UP X2, CALL LIGHT WITHIN REACH. WILL CONTINUE TO MONITOR
[2017-10-28] MEDS ORDERED: LEVALBUTEROL HCL NEB 1.25 MG/0.5 ML VIAL.NEB IH SCH (08:00)
[2017-10-28 08:24] LABS: THYROID STIMULATING HORMONE 0.541 uIU/mL (0.358-3.74)
[2017-10-28 08:25] LABS: MAGNESIUM 1.8 mg/dL (1.8-2.4)
[2017-10-28 08:26] LABS: PHOSPHORUS 5.6 mg/dL (2.5-4.9)
[2017-10-28] MEDS: PANTOPRAZOLE 40 MG TABLET.DR PO SCH (08:26)
[2017-10-28] MEDS: ASPIRIN 81 MG TAB.CHEW PO SCH (08:26)
[2017-10-28] MEDS ORDERED: TRANEXAMIC ACID 1,500 MG in SODIUM CHLORIDE IRRIG SOLUTION 85 ML IR ONE (08:30)
[2017-10-28] MEDS ORDERED: FUROSEMIDE 40 MG TABLET PO SCH (09:00)
[2017-10-28] MEDS ORDERED: CARVEDILOL 12.5 MG TABLET PO SCH (09:00)
[2017-10-28] MEDS: HEPARIN SODIUM, PORCINE 5000 UNITS/1 ML VIAL SQ SCH ×2 (11:08→21:33)
[2017-10-28] MEDS: Magnesium 1GM/D5W 100ML PREMIX 100 ML IV SCH ×2 (12:10→13:46)
[2017-10-28] MEDS: GUAIFENESIN/CODEINE 10 ML UDC PO PRN ×2 (12:10→18:21)
[2017-10-28] MEDS ORDERED: Magnesium 1GM/D5W 100ML PREMIX PIGGYBACK IV ONE (13:00)
[2017-10-28] MEDS: ALBUTEROL FS 2.5 MG/0.5 ML VIAL.NEB NEB SCH ×2 (13:28→19:21)
--- NOTE | 2017-10-28 19:12 | NUR ---
MS RN CLOSING NOTES PT REMAINS STABLE. ALL NEEDS WERE MET DURING SHIFT AND ORDERS CARRIED OUT ACCORDINGLY. ALL DUE MEDS GIVEN. PT TO RECEIVE PRN BREATHING TREATMENT. HE WAS KEPT COMFORTABLE ALL THROUGHOUT SHIFT. SAFETY MEASURES REMAIN IN PLACE. WILL ENDORSE OT NIGHTSHIFT NURSE FOR TARAH
--- NOTE | 2017-10-28 20:00 | NUR ---
MS/RN OPENING NOTES PATIENT IN BED, ALERT, ORIENTED, BREATHING TREATMENT GIVEN BY RT 20 MINUTES AGO, OBSERVE COUGHING, KEPT BED UP, , SKIN WARM TO TOUCH, ON 2 LITER OXYGEN VIA NC, BED IN LOCK POSITION, CALL LIGHTS WITHIN REACH, WILL MONITOR.
--- NOTE | 2017-10-28 20:32 | NUR ---
MS/RN NOTES RECEIVED REPORT FROM REBECA KEY. RECEIVED PT. LYING IN BED RESTING. PT. IS EASILY AROUSABLE TO NAME. AWAKE, ALERT AND ORIENTED X3. BREATHING EVEN AND UNLABORED ON 2LPM O2 VIA NC. NO SOB, RESPIRATORY DISTRESS OR COMPLAINTS OF PAIN NOTED AT THIS TIME. PT. WITH LEFT AC 18 GAUGE SALINE LOCK PRESENT, PATENT AND INTACT. BED LOCKED AND IN LOWEST POSITION, SIDE RAILS UP X2, BED ALARM ON, CALL LIGHT WITHIN REACH, WILL CONTINUE TO MONITOR.
[2017-10-28] MEDS: TAMSULOSIN 0.4 MG CAP.SR.24H PO SCH (21:32)
[2017-10-28] MEDS: *INSULIN REGULAR(HUMULIN R)HUM 100 UNIT/ML VIAL SQ PRN (21:33)
[2017-10-28] MEDS: INSULIN GLARGINE, 100 UNIT/ML CARTRIDGE SQ SCH (21:34)
[2017-10-29] MEDS: ALBUTEROL FS 2.5 MG/0.5 ML VIAL.NEB NEB SCH ×4 (00:41→19:37)
--- NOTE | 2017-10-29 06:37 | NUR ---
MS/RN NOTES PT. IS LYING IN BED RESTING. BREATHING EVEN AND UNLABORED ON 2LPM O2 VIA NC. NO SOB, RESPIRATORY DISTRESS OR COMPLAINTS OF PAIN NOTED AT THIS TIME AND THROUGHOUT SHIFT. PT. WITH LEFT AC 18 GAUGE SALINE LOCK PRESENT, PATENT AND INTACT. ALL PT. NEEDS MET. BED LOCKED AND IN LOWEST POSITION, SIDE RAILS UP X2, BED ALARM ON, CALL LIGHT WITHIN REACH, WILL ENDORSE TO DAYSHIFT NURSE FOR CONTINUITY OF CARE.
[2017-10-29 07:03] LABS: ALANINE AMINOTRANSFERASE 16 U/L (12-78); ALBUMIN 1.7 g/dL (3.4-5.0); ALKALINE PHOSPHATASE 119 U/L (46-116); ASPARTATE AMINOTRANSFERASE 21 U/L (15-37); BILIRUBIN,TOTAL 0.3 mg/dL (0.2-1.0); CALCIUM, SERUM 7.9 mg/dL (8.5-10.1); CARBON DIOXIDE 24 mmol/L (21-32); CHLORIDE 99 mmol/L (98-107); CREATININE 3.6 mg/dL (0.6-1.3); GLUCOSE 184 mg/dL (74-106); MAGNESIUM 2.3 mg/dL (1.8-2.4); PHOSPHORUS 5.9 mg/dL (2.5-4.9); POTASSIUM 4.5 mmol/L (3.5-5.1); SODIUM SERUM 131 mmol/L (136-145); TOTAL PROTEIN, SERUM 5.9 g/dL (6.4-8.2); UREA NITROGEN, BLOOD 48 mg/dL (7-18)
--- NOTE | 2017-10-29 07:15 | NUR ---
MS RN NOTES' RECEIVED PATIENT IN BED ALERT ORIENTED X4. NO ACUTE DISTRESS NOTED. BREATHING UNLABORED. ON O2 @ 2 LPM VIA NC. DENIED ANY PAIN. IV ACCESS PATENT AND INTACT. SAFETY MEASURES IN PLACE. CALL LIGHT WITHIN REACH. WILL CONTINUE TO MONITOR ACCORDINGLY.
[2017-10-29 07:25] LABS: CREATINE KINASE, TOTAL 809 U/L (39-308)
[2017-10-29] MEDS: BLOOD SUGAR DIAGNOSTIC 1 EACH STRIP VI SCH ×4 (07:28→21:54)
[2017-10-29] MEDS: INSULIN REGULAR, HUMAN 100 UNIT/ML 3 ML VIAL SQ PRN ×3 (07:29→17:32)
[2017-10-29 07:33] LABS: BASOPHILS % (AUTO) 0.4 % (0.0-2.0); EOSINOPHILS % (AUTO) 0.9 % (0.0-6.0); HEMATOCRIT 28 % (39-51); HEMOGLOBIN 9.7 g/dL (13.5-17.5); LYMPHOCYTES # (AUTO) 0.9 /CMM (0.8-4.8); LYMPHOCYTES % (AUTO) 12.2 % (20.0-44.0); MEAN CORPUSCULAR HGB CONC 35 g/dl (31.0-36.0); MEAN CORPUSCULAR VOLUME 84 fL (80-96); MONOCYTES # (AUTO) 0.7 /CMM (0.1-1.30); MONOCYTES % (AUTO) 10.1 % (2.0-12.0); NEUTROPHILS # (AUTO) 5.7 /CMM (1.8-8.9); NEUTROPHILS % (AUTO) 76.4 % (43.0-81.0); PLATELET COUNT (AUTO) 151 /CMM (150-450); RDW COEFFICIENT OF VARIATION 13.5 (11.5-15.0); WHITE BLOOD COUNT (AUTO) 7.4 K/uL (4.3-11.0)
[2017-10-29 08:00] VITALS: BP 150/87
[2017-10-29 08:07] LABS: CREATINE KINASE MB 3.9 ng/mL (0-3.6)
[2017-10-29] MEDS: ASPIRIN 81 MG TAB.CHEW PO SCH (08:41)
[2017-10-29] MEDS: PANTOPRAZOLE 40 MG TABLET.DR PO SCH (08:41)
[2017-10-29] MEDS: HEPARIN SODIUM, PORCINE 5000 UNITS/1 ML VIAL SQ SCH ×2 (08:43→21:07)
[2017-10-29] MEDS: hydrALAZINE HCL 50 MG TABLET PO SCH ×3 (10:08→17:14)
[2017-10-29] MEDS: ALBUTEROL FS 2.5 MG/3 ML VIAL.NEB NEB PRN (12:08)
--- NOTE | 2017-10-29 13:38 | NUR ---
MS RN NOTES SEEN AND EVALUATED BY DR ALEXA SALDAÑA, WITH NEW ORDERS MADE. NOTED AND CARRIED OUT.
[2017-10-29] MEDS: methylPREDNISolone SOD SUCC 40 MG/ML VIAL IV SCH ×2 (13:44→17:14)
[2017-10-29] MEDS ORDERED: LEVOFLOXACIN (500MG) 500 MG TABLET PO ONE (15:00)
[2017-10-29 16:00] VITALS: BP 153/68
[2017-10-29] MEDS ORDERED: INSULIN REGULAR, HUMAN 100 UNIT/ML 10 ML VIAL SQ SCH (17:30)
--- NOTE | 2017-10-29 18:06 | NUR ---
MS RN NOTES PATIENT SITTING IN BED ALERT ORIENTED X 4, FAMILY AT BEDSIDE. NO ACUTE DISTRESS NOTED. BREATHING UNLABORED. ON 02 @ 2LPM VIA NC. IV ACCESS PATENT AND INTACT, NO BLEEDING OR SWELLING NOTED. DUE MEDICATIONS GIVEN, NO ASE NOTED.NEEDS ATTENDED AND ANTICIPATED. SAFETY MEASURES IN PLACE. CALL LIGHT WITHIN REACH. WILL CONTINUE TO MONITOR ACCORDINGLY. WILL ENDORSE TO NIGHT NURSE FOR CONTINUITY OF CARE.
--- NOTE | 2017-10-29 19:30 | NUR ---
RN NOTES: RECEIVED PATIENT AWAKE, SITTING ON THE CHAIR ADJACENT TO HER BED. SURROUNDED BY FAMILY MEMBERS,A/OX3,ON ROOM AIR SPO2-95%, NO SOB OR WHEEZING NOTED,FALL,SAFETY AND ASPIRATION PRECAUTION OBSERVED, KEOT CALL LIGHT WITHIN EASY REACH.HEP LOCK OF LAC G#18 INTACT/PATENT.KEPT ON CLOSE WATCH.
[2017-10-29 20:00] VITALS: BP 133/72
--- NOTE | 2017-10-29 20:13 | NUR ---
RN NOTES: PER RELATIVE PRESENT AT BED, PATIENT HAS NO BM FOR 2-3 DAYS ALREADY, MOM PRN GIVEN PER PATIENT REQUEST.
[2017-10-29] MEDS: TAMSULOSIN 0.4 MG CAP.SR.24H PO SCH (21:08)
[2017-10-29] MEDS: *INSULIN REGULAR(HUMULIN R)HUM 100 UNIT/ML VIAL SQ PRN (21:54)
[2017-10-29] MEDS: GUAIFENESIN/CODEINE 10 ML UDC PO PRN (21:58)
[2017-10-29] MEDS ORDERED: INSULIN GLARGINE, 100 UNIT/ML CARTRIDGE SQ SCH (22:00)
--- NOTE | 2017-10-29 22:12 | NUR ---
RN NOTES: 220 BLOOD SUGAR CHECK -319, REGULAR INSULIN GIVEN PER SCALE, ALSO LANTUS,PATIENT COMPLAINED OF ON AND OFF COUGH, OFFERED MEDS, WITH THE HELP OF SENIOR SYSTEMS ARCHITECT, HE AGREED, PRN MEDICATION GIVEN AT 2158.WILL CONTINUE TO MONITOR FOR SIGN OF HYPER/HYPOGLYCEMIA AND FOR ANY SOB AND DISCOMFORT.
[2017-10-30] MEDS: ALBUTEROL FS 2.5 MG/0.5 ML VIAL.NEB NEB SCH ×4 (01:14→19:30)
--- NOTE | 2017-10-30 03:28 | NUR ---
RN NOTES: ABLE TO SLEEP AND REST, AFTER NEBULIZATION RENDERED,NO WHEEZING NOTED, KEPT CALL LIGHT WITHIN EASY REACH.
[2017-10-30] MEDS: INSULIN REGULAR, HUMAN 100 UNIT/ML 3 ML VIAL SQ PRN ×4 (06:14→21:38)
[2017-10-30] MEDS: BLOOD SUGAR DIAGNOSTIC 1 EACH STRIP VI SCH ×4 (06:15→21:34)
[2017-10-30 06:17] LABS: BASOPHILS % (AUTO) 0.1 % (0.0-2.0); HEMATOCRIT 30 % (39-51); HEMOGLOBIN 10.1 g/dL (13.5-17.5); LYMPHOCYTES # (AUTO) 0.6 /CMM (0.8-4.8); LYMPHOCYTES % (AUTO) 8.2 % (20.0-44.0); MEAN CORPUSCULAR HGB CONC 34 g/dl (31.0-36.0); MEAN CORPUSCULAR VOLUME 85 fL (80-96); MONOCYTES # (AUTO) 0.2 /CMM (0.1-1.30); MONOCYTES % (AUTO) 3.1 % (2.0-12.0); NEUTROPHILS # (AUTO) 6.5 /CMM (1.8-8.9); NEUTROPHILS % (AUTO) 88.6 % (43.0-81.0); PLATELET COUNT (AUTO) 153 /CMM (150-450); RDW COEFFICIENT OF VARIATION 13.4 (11.5-15.0); RED BLOOD CELL COUNT(AUTO) 3.47 MIL/uL (4.5-6.0); WHITE BLOOD COUNT (AUTO) 7.4 K/uL (4.3-11.0)
--- NOTE | 2017-10-30 06:19 | NUR ---
RN NOTES: PATIENT AWAKE, STILL WITH ON AND OFF COUGH, BLOOD SUGAR CHECK-245, INSULIN GIVEN PER SCALE, AFTER HE RECEIVED HIS DOSE HE REQUEST TO DRINK APPLE JUICE,ON FLUID RESTRICTION,STRICTLY OBSERVED.
--- NOTE | 2017-10-30 06:36 | NUR ---
RN NOTES: LYING ON BED COMFORTABLY,SEMI FOWLERS POSITION, NO SIGN OF RESPIRATORY DISTRESS,BED LOW AND LOCKED, CALL LIGHT WITHIN EASY REACH, ENDORSED FOR CONTINUITY OF CARE.ON FLUID RESTRICTION.
[2017-10-30 06:45] LABS: CARBON DIOXIDE 22 mmol/L (21-32); CHLORIDE 96 mmol/L (98-107); CREATININE 3.9 mg/dL (0.6-1.3); GLUCOSE 237 mg/dL (74-106); MAGNESIUM 2.5 mg/dL (1.8-2.4); POTASSIUM 5.4 mmol/L (3.5-5.1); SODIUM SERUM 130 mmol/L (136-145); UREA NITROGEN, BLOOD 59 mg/dL (7-18)
--- NOTE | 2017-10-30 07:15 | NUR ---
MS RN NOTES RECEIVED PATIENT IN BEB, ALERT ORIENTED X 4. NO ACUTE DISTRESS NOTED. BREATHING UNLABORED. ON 02 @ 2LPM. SAFETY MEASURES IN PLACE. CALL LIGHT WITHIN REACH. WILL CONTINUE TO MONITOR ACCORDINGLY.
[2017-10-30 08:00] VITALS: BP 158/86
[2017-10-30] MEDS: methylPREDNISolone SOD SUCC 40 MG/ML VIAL IV SCH ×2 (08:23→12:33)
[2017-10-30] MEDS: HEPARIN SODIUM, PORCINE 5000 UNITS/1 ML VIAL SQ SCH ×2 (08:24→21:38)
[2017-10-30] MEDS: PANTOPRAZOLE 40 MG TABLET.DR PO SCH (08:25)
[2017-10-30] MEDS: hydrALAZINE HCL 50 MG TABLET PO SCH ×3 (08:25→16:50)
[2017-10-30] MEDS: ASPIRIN 81 MG TAB.CHEW PO SCH (08:26)
[2017-10-30] MEDS: AMLODIPINE BESYLATE 5 MG TABLET PO SCH (08:26)
[2017-10-30] MEDS ORDERED: hydrALAZINE HCL 50 MG TABLET PO SCH (09:00)
[2017-10-30] MEDS ORDERED: hydrALAZINE HCL 50 MG TABLET PO ONE (09:30)
[2017-10-30] MEDS: ISOSORBIDE DINITRATE (20MG) 20 MG TABLET PO SCH ×2 (09:38→16:49)
[2017-10-30] MEDS ORDERED: SODIUM POLYSTYRENE SULFONATE 15 G/60 ML BOTTLE PO ONE (13:30)
--- NOTE | 2017-10-30 13:30 | NUR ---
MS RN NOTES SEEN AND EVALUATED BY DR MARIE SALDAÑA WITH NEW ORDERS MADE. NOTED AND CARRIED OUT.
[2017-10-30] MEDS: LEVOFLOXACIN (250MG) 250 MG TABLET PO SCH (14:15)
[2017-10-30 16:00] VITALS: BP 131/71
[2017-10-30] MEDS: INSULIN LISPRO/ASPART 100 UNIT/ML CARTRIDGE SQ SCH (17:29)
--- NOTE | 2017-10-30 17:55 | NUR ---
MS RN NOTES NOTED PATIENT BS 431 DR PIOTR SALAZAR NOTIFIED, ROUTINE INSULIN AND SLIDING SCALE INSULIN GIVEN WITH NEW ORDER TO GIVE LANTUS 10 UNITS. NOTED AND CARRIED OUT. PATIENT STABLE.
[2017-10-30] MEDS ORDERED: INSULIN GLARGINE, 100 UNIT/ML CARTRIDGE SQ ONE (18:00)
--- NOTE | 2017-10-30 18:20 | NUR ---
MS RN NOTES RECHECKED BLOOD SUGAR, NOTIFIED MARIE CROWLEY , NO NEW ORDERS MADE AT THIS TIME. PATIENT ASYMPTOMATIC. WILL CONTINUE TO MONITOR PATIENT.
--- NOTE | 2017-10-30 19:00 | NUR ---
MS RN NOTES PATIENT IN ALERT ORIENTED X4, FAMILY AT BEDSIDE. NO ACUTE DISTRESS NOTED. BREATHING UNLABORED. NO S/SX OF HYPER/HYPOGLYCEMIA. DUE MEDICATIONS GIVEN, NO ASE NOTED. NEEDS ATTENDED AND ANTICIPATED. SAFETY MEASURES IN PLACE. CALL LIGHT WITHIN REACH. WILL CONTINUE TO MONITOR ACCORDINGLY. ENDORSE TO NIGHT NURSE FOR CONTINUITY OF CARE.
--- NOTE | 2017-10-30 19:15 | NUR ---
RN OPENING NOTES PT AWAKE AND RESTING IN BED. FAMILY AT BEDSIDE. NO COMPLAINTS OF PAIN, SOB, OR DISTRESS AT THIS TIME. PT ON 2L 02 VIA NASAL CANNULA. PT HAS A RIGHT HAND #22 IV, INTACT AND PATENT. SAFETY PRECAUTIONS IN PLACE. BED IN LOWEST LOCKED POSITION, X2 SIDE RAILS UP, CALL LIGHT WITHIN REACH WILL CONTINUE TO MONITOR.
[2017-10-30 20:23] VITALS: BP 120/60
[2017-10-30] MEDS: ALBUTEROL FS 2.5 MG/3 ML VIAL.NEB NEB PRN (21:18)
[2017-10-30] MEDS: TAMSULOSIN 0.4 MG CAP.SR.24H PO SCH (21:35)
[2017-10-30] MEDS: INSULIN GLARGINE, 100 UNIT/ML CARTRIDGE SQ SCH (21:39)
[2017-10-31] MEDS: ALBUTEROL FS 2.5 MG/0.5 ML VIAL.NEB NEB SCH ×4 (02:22→19:52)
[2017-10-31] MEDS: ALBUTEROL FS 2.5 MG/3 ML VIAL.NEB NEB PRN (02:22)
[2017-10-31] MEDS: BLOOD SUGAR DIAGNOSTIC 1 EACH STRIP VI SCH ×4 (06:39→21:13)
[2017-10-31] MEDS: INSULIN REGULAR, HUMAN 100 UNIT/ML 3 ML VIAL SQ PRN ×3 (06:41→23:46)
--- NOTE | 2017-10-31 07:33 | NUR ---
RN OPENING NOTES PT AWAKE AND RESTING IN BED. NO COMPLAINTS OF PAIN, SOB, OR DISTRESS AT THIS TIME. PT ON 2L 02 VIA NASAL CANNULA. PT HAS A RIGHT HAND #22 IV, INTACT AND PATENT. SAFETY PRECAUTIONS IN PLACE. BED IN LOWEST LOCKED POSITION, X2 SIDE RAILS UP, CALL LIGHT WITHIN REACH WILL ENDORSE TO DAY SHIFT NURSE FOR CONTINUITY OF CARE. Addendum: 10/31/17 at 0734 by REESE PAGE RN RN CLOSING NOTES
--- NOTE | 2017-10-31 07:49 | NUR ---
MS/RN OPENING NOTE PATIENT ALERT AND ORIENTED X3. DENIES SOB. RESPIRATION REGULAR AND UNLABORED. DENIES PAIN. RIGHT HAND G 22 PATENT AND SALINE LOCKED. SIDE RAILS UP X2. CALL LIGHT WITHIN REACH. WILL CONTINUE TO MONITOR.
[2017-10-31 08:06] VITALS: BP 146/79
[2017-10-31] MEDS: ASPIRIN 81 MG TAB.CHEW PO SCH (08:18)
[2017-10-31] MEDS: hydrALAZINE HCL 50 MG TABLET PO SCH ×3 (08:18→16:11)
[2017-10-31] MEDS: ISOSORBIDE DINITRATE (20MG) 20 MG TABLET PO SCH ×2 (08:18→16:10)
[2017-10-31] MEDS: PANTOPRAZOLE 40 MG TABLET.DR PO SCH (08:18)
[2017-10-31] MEDS: AMLODIPINE BESYLATE 5 MG TABLET PO SCH (08:19)
[2017-10-31] MEDS: HEPARIN SODIUM, PORCINE 5000 UNITS/1 ML VIAL SQ SCH ×2 (08:26→21:14)
[2017-10-31] MEDS: INSULIN LISPRO/ASPART 100 UNIT/ML CARTRIDGE SQ SCH ×3 (08:27→17:54)
[2017-10-31] MEDS: HYDROCODONE/APAP 5/325MG 1 EACH TABLET PO PRN ×2 (10:01→19:39)
[2017-10-31] MEDS: FUROSEMIDE 40 MG TABLET PO SCH (11:09)
[2017-10-31 11:12] LABS: *SPE A/G RATIO 0.6 (0.7-1.7); *SPE ALBUMIN 1.9 g/dL (2.9-4.4); *SPE ALPHA-1-GLOBULIN 0.3 g/dL (0.0-0.4); *SPE ALPHA-2-GLOBULIN 1.5 g/dL (0.4-1.0); *SPE BETA GLOBULIN 0.9 g/dL (0.7-1.3); *SPE GLOBULIN, TOTAL 3.2 g/dL (2.2-3.9); *SPE M-SPIKE Not Observed g/dL (Not Observed); *SPEGAMMA GLOBULIN 0.5 g/dL (0.4-1.8)
[2017-10-31 11:36] LABS: CARBON DIOXIDE 22 mmol/L (21-32); CHLORIDE 94 mmol/L (98-107); CREATININE 4.9 mg/dL (0.6-1.3); GLUCOSE 174 mg/dL (74-106); POTASSIUM 4.3 mmol/L (3.5-5.1); SODIUM SERUM 128 mmol/L (136-145); UREA NITROGEN, BLOOD 76 mg/dL (7-18)
[2017-10-31 11:38] LABS: HEMATOCRIT 29 % (39-51); LYMPHOCYTES # (AUTO) 1.3 /CMM (0.8-4.8); LYMPHOCYTES % (AUTO) 8.7 % (20.0-44.0); MEAN CORPUSCULAR HGB CONC 35 g/dl (31.0-36.0); MEAN CORPUSCULAR VOLUME 85 fL (80-96); MONOCYTES % (AUTO) 6.4 % (2.0-12.0); NEUTROPHILS # (AUTO) 12.9 /CMM (1.8-8.9); NEUTROPHILS % (AUTO) 84.9 % (43.0-81.0); PLATELET COUNT (AUTO) 187 /CMM (150-450); RDW COEFFICIENT OF VARIATION 13.8 (11.5-15.0); RED BLOOD CELL COUNT(AUTO) 3.37 MIL/uL (4.5-6.0); WHITE BLOOD COUNT (AUTO) 15.2 K/uL (4.3-11.0)
[2017-10-31 11:42] LABS: ALANINE AMINOTRANSFERASE 17 U/L (12-78); ALBUMIN 1.8 g/dL (3.4-5.0); ALKALINE PHOSPHATASE 101 U/L (46-116); ASPARTATE AMINOTRANSFERASE 26 U/L (15-37); BILIRUBIN,TOTAL 0.3 mg/dL (0.2-1.0); MAGNESIUM 2.9 mg/dL (1.8-2.4); PHOSPHORUS 7.8 mg/dL (2.5-4.9)
[2017-10-31] MEDS: LEVOFLOXACIN (250MG) 250 MG TABLET PO SCH (14:26)
[2017-10-31 16:00] VITALS: BP 128/58
--- NOTE | 2017-10-31 17:55 | NUR ---
MS/RN NOTE BLOOD SUGAR 143 PATIENT REFUSED REGULAR INSULIN.
--- NOTE | 2017-10-31 18:04 | NUR ---
MS/RN CLOSING NOTE PATIENT ALERT AND ORIENTED X3. DENIES SOB. RESPIRATION REGULAR AND UNLABORED. IB OXYGEN AT 2L/MIN VIA NC AND O2 SATURATION AT 95%. DENIES PAIN. CONTINENT ON BOWEL AND BLADDER. AMBULATED WITH PT. RIGHT HAND G 22 PATENT AND SALINE LOCKED. GOOD AND GENTLE SKIN CARE RENDERED. KEPT CLEAN AND COMFORTABLE. ALL NEEDS ATTENDED AND ANTICIPATED. BED LOW AND LOCKED. SIDE RAILS UP X2. CALL LIGHT WITHIN REACH. WILL ENDORSE TO PLASTIC SURGERY ASSISTANT.
--- NOTE | 2017-10-31 19:30 | NUR ---
RN OPENING NOTES PT AWAKE AND RESTING IN BED. FAMILY AT BEDSIDE. NO COMPLAINTS OF SOB AT THIS TIME. PT COMPLAINS OF TIGHTNESS IN HIS LEGS. WILL ADDRESS PT PAIN. PT IS ON 2L O2 VIA NASAL CANNULA. PT HAS A RIGHT HAND #22, INTACT AND PATENT. PER DAY SHIFT PT ABLE TO AMBULATE WITH WALKER WITH PHYSICAL THERAPY. SAFETY PRECAUTIONS IN PLACE BED IN LOWEST LOCKED POSITION, X2 SIDE RAILS UP. CALL LIGHT WITHIN REACH WILL CONTINUE TO MONITOR.
[2017-10-31 20:04] VITALS: BP 134/71
[2017-10-31] MEDS: *INSULIN REGULAR(HUMULIN R)HUM 100 UNIT/ML VIAL SQ PRN (21:12)
[2017-10-31] MEDS: INSULIN GLARGINE, 100 UNIT/ML CARTRIDGE SQ SCH (21:13)
[2017-10-31] MEDS: TAMSULOSIN 0.4 MG CAP.SR.24H PO SCH (21:14)
[2017-10-31] MEDS ORDERED: DEXTROSE 50%-WATER 50 ML DISP.SYRIN IV PRN (23:00)
[2017-10-31] MEDS: BLOOD SUGAR DIAGNOSTIC 1 EACH STRIP IN SCH (23:14)
[2017-11-01] MEDS: BLOOD SUGAR DIAGNOSTIC 1 EACH STRIP IN SCH ×6 (01:16→21:39)
[2017-11-01] MEDS: INSULIN REGULAR, HUMAN 100 UNIT/ML 3 ML VIAL SQ PRN ×3 (01:16→21:57)
[2017-11-01] MEDS: ALBUTEROL FS 2.5 MG/0.5 ML VIAL.NEB NEB SCH ×4 (01:44→19:03)
[2017-11-01 06:33] LABS: BASOPHILS % (AUTO) 0.2 % (0.0-2.0); EOSINOPHILS % (AUTO) 0.6 % (0.0-6.0); HEMATOCRIT 26 % (39-51); HEMOGLOBIN 9.1 g/dL (13.5-17.5); LYMPHOCYTES # (AUTO) 1.6 /CMM (0.8-4.8); LYMPHOCYTES % (AUTO) 12.8 % (20.0-44.0); MEAN CORPUSCULAR HGB CONC 35 g/dl (31.0-36.0); MEAN CORPUSCULAR VOLUME 84 fL (80-96); NEUTROPHILS # (AUTO) 9.6 /CMM (1.8-8.9); NEUTROPHILS % (AUTO) 78.4 % (43.0-81.0); PLATELET COUNT (AUTO) 177 /CMM (150-450); RDW COEFFICIENT OF VARIATION 13.6 (11.5-15.0); RED BLOOD CELL COUNT(AUTO) 3.11 MIL/uL (4.5-6.0); WHITE BLOOD COUNT (AUTO) 12.3 K/uL (4.3-11.0)
[2017-11-01 06:45] LABS: ALANINE AMINOTRANSFERASE 14 U/L (12-78); ALBUMIN 1.7 g/dL (3.4-5.0); ALKALINE PHOSPHATASE 92 U/L (46-116); ASPARTATE AMINOTRANSFERASE 27 U/L (15-37); BILIRUBIN,TOTAL 0.2 mg/dL (0.2-1.0); CALCIUM, SERUM 7.4 mg/dL (8.5-10.1); CARBON DIOXIDE 21 mmol/L (21-32); CHLORIDE 94 mmol/L (98-107); GLUCOSE 90 mg/dL (74-106); MAGNESIUM 2.8 mg/dL (1.8-2.4); PHOSPHORUS 7.8 mg/dL (2.5-4.9); SODIUM SERUM 128 mmol/L (136-145); TOTAL PROTEIN, SERUM 5.8 g/dL (6.4-8.2)
[2017-11-01 06:47] LABS: UREA NITROGEN, BLOOD 85 mg/dL (7-18)
--- NOTE | 2017-11-01 06:57 | NUR ---
RN CLOSING NOTES RESTING IN BED. NO COMPLAINTS OF PAIN, SOB, DISTRESS AT THIS TIME. PT IS ON 2L O2 VIA NASAL CANNULA. PT HAS A RIGHT HAND #22, INTACT AND PATENT. PT ACCU CHECKS HAVE BEEN CHANGED TO Q4HR. CURRENT BLOOD SUGAR LEVEL 98. SAFETY PRECAUTIONS IN PLACE BED IN LOWEST LOCKED POSITION, X2 SIDE RAILS UP. CALL LIGHT WITHIN REACH. WILL ENDORSE TO DAY SHIFT NURSE FOR CONTINUITY OF CARE.
[2017-11-01] MEDS: INSULIN LISPRO/ASPART 100 UNIT/ML CARTRIDGE SQ SCH ×3 (07:30→17:37)
--- NOTE | 2017-11-01 07:30 | NUR ---
MS/RN OPENING NOTE PATIENT ALERT AND ORIENTED X3. LATVIAN SPEAKING. DENIES SOB. ON O2 AT 2L/MIN VIA NC. RESPIRATION REGULAR AND UNLABORED. DENIES PAIN. RIGHT HAND G 22 PATENT AND SALINE LOCKED. BED LOW AND LOCKED. SIDE RAILS UP X2. CALL LIGHT WITHIN REACH. WILL CONTINUE TO MONITOR.
[2017-11-01 08:00] VITALS: BP 135/71
[2017-11-01] MEDS: AMLODIPINE BESYLATE 5 MG TABLET PO SCH (08:25)
[2017-11-01] MEDS: PANTOPRAZOLE 40 MG TABLET.DR PO SCH (08:26)
[2017-11-01] MEDS: hydrALAZINE HCL 50 MG TABLET PO SCH ×3 (08:26→17:34)
[2017-11-01] MEDS: FUROSEMIDE 40 MG TABLET PO SCH (08:26)
[2017-11-01] MEDS: ASPIRIN 81 MG TAB.CHEW PO SCH (08:27)
[2017-11-01] MEDS: ISOSORBIDE DINITRATE (20MG) 20 MG TABLET PO SCH ×2 (08:27→17:34)
[2017-11-01] MEDS: HYDROCODONE/APAP 5/325MG 1 EACH TABLET PO PRN ×2 (08:27→13:00)
[2017-11-01] MEDS: HEPARIN SODIUM, PORCINE 5000 UNITS/1 ML VIAL SQ SCH ×2 (08:28→21:39)
[2017-11-01 09:23] LABS: CALCITRIOL VIT D,1, 25 DIHYDRO 10.1 pg/mL (19.9-79.3)
[2017-11-01] MEDS: SEVELAMER CARBONATE 800 MG TABLET PO SCH ×2 (13:09→17:33)
[2017-11-01] MEDS: FUROSEMIDE 40 MG/4 ML VIAL IV SCH ×2 (13:10→17:00)
[2017-11-01] MEDS: ONDANSETRON HCL/PF 4 MG/2 ML VIAL IVP PRN (13:31)
[2017-11-01 14:00] VITALS: BP 125/67
[2017-11-01] MEDS: LEVOFLOXACIN (250MG) 250 MG TABLET PO SCH (14:57)
[2017-11-01 16:46] VITALS: BP 125/79
--- NOTE | 2017-11-01 17:57 | NUR ---
MS/RN CLOSING NOTE PATIENT IN BED AWAKE. ALERT AND ORIENTED X4. ON OXYGEN AT 2L/MIN VIA NC. DENIES SOB. RESPIRATION REGULAR. PATIENT CONTINENT ON BOWEL AND BLADDER. ASSISTED USING URINAL. RIGHT HAND G 22 PATENT AND SALINE LOCKED. RIGHT GROIN WITH TEMP DIALYSIS CATH INSERTED 11/01/17. DRESSING ON THE CATH SITE INTACT WITH NO BLEEDING AND NO DRAINAGE. PEDAL PULSES PRESENT BILATERAL. BED LOW AND LOCKED. SIDE RAILS UP X2. CALL LIGHT WITHIN REACH. WILL ENDORSE TO PAYROLL ASSOCIATE.
--- NOTE | 2017-11-01 19:20 | NUR ---
MS RN OPENING NOTES RECEIVED PATIENT IN BED, ALERT AND ORIENTED X 3. KYRGYZ SPEAKING. DENIES SOB. ON O2 AT 2L/MIN VIA NC. RESPIRATION REGULAR AND UNLABORED. FAMILY @ BED SIDE. DENIES PAIN. RIGHT HAND G 22 INTACT PATENT, SL. BED LOW AND LOCKED. INSTRUCTED PT TO CALL FOR HELP WITHOUT GETTING OUT OF BED BY HIMSELF FOR SAFETY, VERBALIZED UNDERSTANDING. SIDE RAILS UP X2. CALL LIGHT WITHIN REACH. WILL CONTINUE TO MONITOR CLOSELY.
--- NOTE | 2017-11-01 19:50 | NUR ---
HD STARTED PT IS STARTED ON HD, VS STABLE, TALKATIVE. FAMILY @ BEDSIDE. WILL HOLD MEDS UNTIL HD IS DONE. MONITORING CLOSELY.
[2017-11-01 20:00] VITALS: BP 122/55
--- NOTE | 2017-11-01 21:00 | NUR ---
MS RN NOTE PT IS STILL ON HD, BP 120/58, 92, 20, 98.2, 97 %. STABLE CONDITION.
[2017-11-01 21:09] VITALS: BP 122/55
[2017-11-01] MEDS: TAMSULOSIN 0.4 MG CAP.SR.24H PO SCH (21:38)
--- NOTE | 2017-11-01 21:45 | NUR ---
MS RN NOTE 2 LITER OUTPUT FROM HD.
--- NOTE | 2017-11-01 21:45 | NUR ---
MS RN NOTE PT IS DONE WITH HD X 2HRS. VS STABLE. FAMILY @ BEDSIDE. MONITORING CLOSELY.
[2017-11-01] MEDS: INSULIN GLARGINE, 100 UNIT/ML CARTRIDGE SQ SCH (22:00)
--- NOTE | 2017-11-01 23:30 | NUR ---
HELD SCHEDULED LANTUS PT'S BS LEVEL NOTED TO BE 134, CHECKED TWICE, BS LEVELS REMAINS THE SAME. PT IS ASLEEP & HAD ONLY SMALL AMOUNT OF SNACK, WITH HELD LANTUS TO PREVENT HYPOGLYCEMIA. CN NOTIFIED. WILL RECHECK BS ORDERED Q 4 HRS & WILL MONITOR CLOSELY.
[2017-11-02] MEDS: ALBUTEROL FS 2.5 MG/0.5 ML VIAL.NEB NEB SCH ×4 (01:01→19:38)
--- NOTE | 2017-11-02 01:05 | NUR ---
MS RN NOTE VS CHECKED BP 140 /87, 98, 22, 98, 0/10, 97%. PT NOTED TO BE SLIGHTLY WHEEZING. NOTIFIED RT, BREATHING TREATMENT STARTED. WILL REASSESS FOR THE EFFECTIVENESS.
[2017-11-02] MEDS: BLOOD SUGAR DIAGNOSTIC 1 EACH STRIP IN SCH ×6 (01:24→21:22)
[2017-11-02] MEDS: ONDANSETRON HCL/PF 4 MG/2 ML VIAL IVP PRN (04:05)
--- NOTE | 2017-11-02 04:05 | NUR ---
prn zofran given pt noted to be having nausea, no vomiting noted. prn zofran given, will reassess for effectiveness.
--- NOTE | 2017-11-02 06:39 | NUR ---
MS RN CLOSING NOTES PATIENT SLEPT INTERMITTENTLY @ NIGHT, AWAKE NOW WITH FAMILY MEMBER. A & O X 3. ON O2 AT 2L/MIN VIA NC. DENIES SOB. RESPIRATION REGULAR. PATIENT CONTINENT ON BOWEL AND BLADDER. ASSISTED USING URINAL. NAUSEA IMPROVED AFTER GIVING ZOFRAN, HAD SNACK & TOLERATED WELL. RIGHT HAND G 22 PATENT AND SALINE LOCKED. RIGHT GROIN WITH DIALYSIS CATH INSERTED 11/01/17. DRESSING ON THE CATH SITE INTACT WITH NO BLEEDING AND NO DRAINAGE. PEDAL PULSES PRESENT BILATERAL. BED LOW AND LOCKED. SIDE RAILS UP X 2. CALL LIGHT WITHIN REACH. WILL ENDORSE TO AM SHIFT.
[2017-11-02 07:00] LABS: BASOPHILS % (AUTO) 0.2 % (0.0-2.0); EOSINOPHILS % (AUTO) 0.4 % (0.0-6.0); HEMATOCRIT 26 % (39-51); HEMOGLOBIN 9.1 g/dL (13.5-17.5); LYMPHOCYTES # (AUTO) 1.3 /CMM (0.8-4.8); LYMPHOCYTES % (AUTO) 13.3 % (20.0-44.0); MEAN CORPUSCULAR HGB CONC 35 g/dl (31.0-36.0); MEAN CORPUSCULAR VOLUME 84 fL (80-96); MONOCYTES # (AUTO) 0.9 /CMM (0.1-1.30); MONOCYTES % (AUTO) 8.8 % (2.0-12.0); NEUTROPHILS # (AUTO) 7.5 /CMM (1.8-8.9); NEUTROPHILS % (AUTO) 77.3 % (43.0-81.0); PLATELET COUNT (AUTO) 168 /CMM (150-450); RDW COEFFICIENT OF VARIATION 13.4 (11.5-15.0); RED BLOOD CELL COUNT(AUTO) 3.09 MIL/uL (4.5-6.0); WHITE BLOOD COUNT (AUTO) 9.7 K/uL (4.3-11.0)
[2017-11-02 07:10] LABS: CALCIUM, SERUM 7.3 mg/dL (8.5-10.1); CARBON DIOXIDE 23 mmol/L (21-32); CHLORIDE 95 mmol/L (98-107); CREATININE 4.4 mg/dL (0.6-1.3); GLUCOSE 139 mg/dL (74-106); MAGNESIUM 2.5 mg/dL (1.8-2.4); PHOSPHORUS 6.3 mg/dL (2.5-4.9); SODIUM SERUM 130 mmol/L (136-145); UREA NITROGEN, BLOOD 66 mg/dL (7-18)
--- NOTE | 2017-11-02 07:30 | NUR ---
MS RN NOTES PATIENT A&O x3. CROATIAN SPEAKING PREFERRED. UNDERSTAND MINIMUM SOMALI. ON O2 @LPM VIA NASAL CANNULA. IVC IN RIGHT HAND 22g, PATENT AND INTACT. FLUSHES WELL. RIGHT GROIN HD CATH INTACT. DRESSING IN PLACE. NO BLEEDING NOTED. DENIES ANY PAIN. SAFETY MEASURES IN PLACE. CALL LIGHT WITHIN REACH. WILL CONTINUE TO MONITOR.
[2017-11-02 08:00] VITALS: BP 122/68
[2017-11-02] MEDS: INSULIN LISPRO/ASPART 100 UNIT/ML CARTRIDGE SQ SCH ×3 (08:32→17:45)
[2017-11-02] MEDS: SEVELAMER CARBONATE 800 MG TABLET PO SCH ×3 (08:33→17:42)
[2017-11-02] MEDS: ASPIRIN 81 MG TAB.CHEW PO SCH (08:35)
[2017-11-02] MEDS: ISOSORBIDE DINITRATE (20MG) 20 MG TABLET PO SCH ×2 (08:35→16:44)
[2017-11-02] MEDS: PANTOPRAZOLE 40 MG TABLET.DR PO SCH (08:35)
[2017-11-02] MEDS: FUROSEMIDE 40 MG/4 ML VIAL IV SCH ×2 (08:35→16:44)
[2017-11-02] MEDS: AMLODIPINE BESYLATE 5 MG TABLET PO SCH (08:40)
[2017-11-02] MEDS: HEPARIN SODIUM, PORCINE 5000 UNITS/1 ML VIAL SQ SCH ×2 (08:44→21:22)
[2017-11-02] MEDS: INSULIN REGULAR, HUMAN 100 UNIT/ML 3 ML VIAL SQ PRN ×4 (08:48→21:45)
[2017-11-02] MEDS: hydrALAZINE HCL 50 MG TABLET PO SCH ×3 (10:26→17:46)
--- NOTE | 2017-11-02 12:21 | NUR ---
Insulin dose not administered. Blood Sugar 75mg/dL.
--- NOTE | 2017-11-02 14:30 | NUR ---
HYDRALAZINE NON ADMINISTERED, EPISODE OF DECREASE BP. DIALYSIS IN PROGRESS.
[2017-11-02 16:00] VITALS: BP 137/86
[2017-11-02] MEDS: LEVOFLOXACIN (250MG) 250 MG TABLET PO SCH (16:57)
--- NOTE | 2017-11-02 16:59 | NUR ---
OPENED TAB. OF LEVAQUIN ACCIDENTALLY DROPPED ON THE FLOOR, WASTED WITNESSED BY ANOTHER RN. INFORMED PHARMACY, SPOKE WITH NOEL.
--- NOTE | 2017-11-02 18:48 | NUR ---
MS RN CLOSING NOTES POST DIALYSIS TREATMENT W/ FLUID OUTPUT OF 2L PER DIALYSIS NURSE. PATIENT TOLERATED HEMODIALYSIS WELL. RIGHT GROIN HD CATH: DRESSING IN PLACE. NO BLEEDING NOTED. PATIENT ON 2LPM VIA NASAL CANNULA. BREATHING TREATMENT OF Q6H PER RT. PATIENT DENIES ANY PAIN. NO SOB NOTED OR REPORTED. BLOOD SUGAR MONITOR W/ ISS PER PARAMETERS GIVEN. PER WILLA RIZZO, GANG SUPERVISOR PIPE LINES: WILL NEED OUTPATIENT HEMODIALYSIS. NAIL SETTER IS AWARE. SAFETY MEASURES IN PLACE. CALL LIGHT WITHIN REACH. WILL ENDORSE TO ONCOMING RN.
--- NOTE | 2017-11-02 19:15 | NUR ---
RN OPENING NOTES RECEIVED PATIENT IN BED, ALERT AND ORIENTED X 3, DENIES PAIN,, RECEIVING O2 VIA NC @ 2LPM NOTED WITH NO SOB, BREATHING EVEN AND UNLABORED, IN NO ACUTE DISTRESS. FAMILY AT BEDSIDE. ALL PATIENT'S NEEDS ATTENDED TO AT THIS TIME. PLACED CALL LIGHT WITHIN EASY REACH. BED IN LOW POSITION AND LOCKED IN PLACE. WILL CONTINUE TO MONITOR.
[2017-11-02 20:00] VITALS: BP 122/74
[2017-11-02] MEDS: TAMSULOSIN 0.4 MG CAP.SR.24H PO SCH (21:22)
[2017-11-02] MEDS: INSULIN GLARGINE, 100 UNIT/ML CARTRIDGE SQ SCH (22:04)
[2017-11-03] MEDS: BLOOD SUGAR DIAGNOSTIC 1 EACH STRIP IN SCH ×6 (00:53→22:13)
[2017-11-03] MEDS: INSULIN REGULAR, HUMAN 100 UNIT/ML 3 ML VIAL SQ PRN ×4 (00:56→17:21)
[2017-11-03] MEDS: ALBUTEROL FS 2.5 MG/0.5 ML VIAL.NEB NEB SCH ×4 (01:18→19:47)
[2017-11-03 05:16] LABS: PTH, INTACT 260 pg/mL (15-65)
--- NOTE | 2017-11-03 06:33 | NUR ---
RN CLOSING NOTES PATIENT IN BED, ASLEEP BUT EASILY AROUSABLE, NOTED WITH NO SOB, BREATHING EVEN AND UNLABORED AND IN NO DISTRESS THROUGHOUT THE SHIFT. DENIES PAIN, DIZZINESS OR LIGHT HEADEDNESS. NO EPISODES OF HYPO OR HYPERGLYCEMIA NOTED. CALL LIGHT PLACED WITHIN EASY REACH. BED PLACED IN LOW POSITION AND LOCKED IN PLACE. WILL ENDORSE TO AM SHIFT NURSE FOR CONTINUITY OF CARE.
[2017-11-03 07:04] LABS: BASOPHILS % (AUTO) 0.3 % (0.0-2.0); EOSINOPHILS % (AUTO) 1.4 % (0.0-6.0); HEMATOCRIT 25 % (39-51); HEMOGLOBIN 8.5 g/dL (13.5-17.5); LYMPHOCYTES # (AUTO) 1.5 /CMM (0.8-4.8); LYMPHOCYTES % (AUTO) 17.7 % (20.0-44.0); MEAN CORPUSCULAR HGB CONC 35 g/dl (31.0-36.0); MEAN CORPUSCULAR VOLUME 85 fL (80-96); MONOCYTES # (AUTO) 0.5 /CMM (0.1-1.30); MONOCYTES % (AUTO) 5.6 % (2.0-12.0); NEUTROPHILS # (AUTO) 6.4 /CMM (1.8-8.9); PLATELET COUNT (AUTO) 166 /CMM (150-450); RDW COEFFICIENT OF VARIATION 13.3 (11.5-15.0); RED BLOOD CELL COUNT(AUTO) 2.89 MIL/uL (4.5-6.0); WHITE BLOOD COUNT (AUTO) 8.5 K/uL (4.3-11.0)
--- NOTE | 2017-11-03 07:30 | NUR ---
RN MS NOTES PT IN BED, ASLEEP, EASY TO AROUSE, ALERT AND ORIENTED, DENIES PAIN, BREATHING PATTERN NORMAL, CALL LIGHT WITHIN REACH, NEEDS ATTENDED, KEPT ART OBJECTS SUPERVISOR BED.
[2017-11-03 07:56] LABS: CALCIUM, SERUM 7.7 mg/dL (8.5-10.1); CARBON DIOXIDE 29 mmol/L (21-32); CHLORIDE 96 mmol/L (98-107); CREATININE 3.8 mg/dL (0.6-1.3); GLUCOSE 184 mg/dL (74-106); MAGNESIUM 2.4 mg/dL (1.8-2.4); PHOSPHORUS 4.5 mg/dL (2.5-4.9); POTASSIUM 3.3 mmol/L (3.5-5.1); SODIUM SERUM 132 mmol/L (136-145); UREA NITROGEN, BLOOD 39 mg/dL (7-18)
[2017-11-03 08:00] VITALS: BP 134/72
[2017-11-03] MEDS: ALBUTEROL FS 2.5 MG/3 ML VIAL.NEB NEB PRN ×2 (08:02→14:51)
[2017-11-03] MEDS: INSULIN LISPRO/ASPART 100 UNIT/ML CARTRIDGE SQ SCH ×3 (08:54→17:22)
[2017-11-03] MEDS: HEPARIN SODIUM, PORCINE 5000 UNITS/1 ML VIAL SQ SCH ×2 (08:56→22:28)
[2017-11-03] MEDS: AMLODIPINE BESYLATE 5 MG TABLET PO SCH (08:57)
[2017-11-03] MEDS: PANTOPRAZOLE 40 MG TABLET.DR PO SCH (08:57)
[2017-11-03] MEDS: VIT B CMPLX 3/FA/VIT C/BIOTIN 1 TAB TABLET PO SCH (08:57)
[2017-11-03] MEDS: FUROSEMIDE 40 MG/4 ML VIAL IV SCH (08:57)
[2017-11-03] MEDS: ASPIRIN 81 MG TAB.CHEW PO SCH (08:57)
[2017-11-03] MEDS: SEVELAMER CARBONATE 800 MG TABLET PO SCH ×3 (08:57→17:13)
[2017-11-03] MEDS: ISOSORBIDE DINITRATE (20MG) 20 MG TABLET PO SCH ×2 (08:58→17:14)
[2017-11-03] MEDS: POTASSIUM CHLORIDE 20 MEQ TAB.PRT.SR PO SCH ×2 (10:35→12:46)
[2017-11-03] MEDS: hydrALAZINE HCL 50 MG TABLET PO SCH ×3 (10:58→17:13)
--- NOTE | 2017-11-03 11:00 | NUR ---
RN MS NOTES PT AWAKE, NOT IN PAIN OR DISTRESS, SEEN BY PHYSICAL THERAPIST, ABLE TO WALK WITH A WALKER, TOLERATED WELL, NEEDS ATTENDED, BREATHING TREATMENT GIVEN BY RT, CALL LIGHT WITHIN REACH.
--- NOTE | 2017-11-03 13:00 | NUR ---
RN MS NOTES APRESOLINE NOT GIVEN, PT WITH ONGOING DIALYSIS, BP 108/97 HR 94, NO COMPLAINT OF PAIN OR ANY DISCOMFORT, NOT IN DISTRESS.
[2017-11-03] MEDS: LEVOFLOXACIN (250MG) 250 MG TABLET PO SCH (15:58)
[2017-11-03 16:00] VITALS: BP 132/68
[2017-11-03] MEDS ORDERED: BISACODYL SUPP (10 MG) 10 MG/SUPP.RECT SUPP.RECT RC ONE (18:00)
--- NOTE | 2017-11-03 19:00 | NUR ---
RN MS NOTES PT IN BED, AWAKE, ALERT AND ORIENTED, COMPLAINED OF NO BM FOR 4 DAYS, WILLA BACKEND DEVELOPER INFORMED, ORDERS GIVEN, NOTED AND CARRIED OUT, RESPIRATIONS NORMAL AND NOT LABORED, PM CARE RENDERED, ALL NEEDS ATTENDED.
--- NOTE | 2017-11-03 19:25 | NUR ---
RN OPENING NOTES RECEIVED PATIENT UP IN BED, ASSISTED PATIENT TO THE BATHROOM. PATIENT IS ALERT AND ORIENTED X 3, VERBALLY RESPONSIVE. DENIES PAIN AT THIS TIME, NO SOB, BREATHING EVEN AND UNLABORED. WILL CONTINUE TO MONITOR PT.
[2017-11-03 20:00] VITALS: BP 136/66
--- NOTE | 2017-11-03 21:25 | NUR ---
RN NOTES PATIENT NOTED WITH DOSE OF HEPARIN DUE AT 2100. PAGED CERTIFIED PROFESSIONAL CODER TO CLARIFY IF HEPARIN WILL BE ADMINISTERED OR PUT ON HOLD SECONDARY TO PERMACATH PLACEMENT SCHEDULED FOR TOMORROW. AWAITING FOR CALL BACK.
[2017-11-03] MEDS: INSULIN GLARGINE, 100 UNIT/ML CARTRIDGE SQ SCH (22:00)
[2017-11-03] MEDS: TAMSULOSIN 0.4 MG CAP.SR.24H PO SCH (22:14)
--- NOTE | 2017-11-03 22:20 | NUR ---
RN NOTES RECEIVED CALL BACK FROM IVETTE FELIPE, PER X RAY EQUIPMENT TESTER, IT IS OKAY TO ADMINISTER HEPARIN.
[2017-11-04] MEDS: BLOOD SUGAR DIAGNOSTIC 1 EACH STRIP IN SCH ×5 (01:13→17:57)
[2017-11-04] MEDS: ALBUTEROL FS 2.5 MG/0.5 ML VIAL.NEB NEB SCH ×4 (01:56→19:18)
--- NOTE | 2017-11-04 03:57 | NUR ---
RN NOTES RECEIVED ORDER FROM IVETTE FELIPE FOR LABS IN AM TO BE DONE: CBC, BMP, PT/INR AND TYPE AND SCREEN. ALL ORDERS NOTED AND CARRIED OUT.
--- NOTE | 2017-11-04 06:31 | NUR ---
RN CLOSING NOTES PATIENT LYING IN BED, AWAKE, ALERT AND ORIENTED X 3, IN NO ACUTE DISTRESS, DENIES PAIN , NO SOB, BREATHING EVEN AND UNLABORED. ALL PATIENT'S NEEDS ATTENDED TO THROUGHOUT THE SHIFT. PATIENT SCHEDULED FOR PERMACATH PLACEMENT TODAY. PLACED BED IN LOW POSITION AND LOCKED IN PLACE. WILL ENDORSE TO AM SHIFT NURSE FOR CONTINUITY OF CARE.
[2017-11-04 06:59] LABS: BASOPHILS % (AUTO) 0.2 % (0.0-2.0); EOSINOPHILS % (AUTO) 0.7 % (0.0-6.0); HEMATOCRIT 26 % (39-51); HEMOGLOBIN 9.2 g/dL (13.5-17.5); LYMPHOCYTES # (AUTO) 1.6 /CMM (0.8-4.8); LYMPHOCYTES % (AUTO) 14.2 % (20.0-44.0); MEAN CORPUSCULAR HGB CONC 35 g/dl (31.0-36.0); MEAN CORPUSCULAR VOLUME 87 fL (80-96); MONOCYTES # (AUTO) 0.9 /CMM (0.1-1.30); MONOCYTES % (AUTO) 7.5 % (2.0-12.0); NEUTROPHILS # (AUTO) 8.8 /CMM (1.8-8.9); NEUTROPHILS % (AUTO) 77.4 % (43.0-81.0); PLATELET COUNT (AUTO) 186 /CMM (150-450); RED BLOOD CELL COUNT(AUTO) 3.04 MIL/uL (4.5-6.0); WHITE BLOOD COUNT (AUTO) 11.4 K/uL (4.3-11.0)
[2017-11-04 07:03] LABS: CALCIUM, SERUM 7.7 mg/dL (8.5-10.1); CARBON DIOXIDE 30 mmol/L (21-32); CHLORIDE 96 mmol/L (98-107); CREATININE 3.6 mg/dL (0.6-1.3); GLUCOSE 269 mg/dL (74-106); POTASSIUM 4.4 mmol/L (3.5-5.1); SODIUM SERUM 132 mmol/L (136-145); UREA NITROGEN, BLOOD 30 mg/dL (7-18)
[2017-11-04 07:04] LABS: INR 1.02 (0.87-1.13)
[2017-11-04] MEDS: INSULIN LISPRO/ASPART 100 UNIT/ML CARTRIDGE SQ SCH ×3 (07:30→17:52)
--- NOTE | 2017-11-04 07:52 | NUR ---
RN NOTES PATIENT A/OX3 IRISH SPEAKING, NO DISTRESS NOTED, DENIES PAIN OR DISCOMFORT AT THIS TIME, NPO AT THIS TIME FOR PERMACATH PLACEMENT, NEEDS ATTENDED AND MET, CALL LIGHT WITHIN REACH, WILL CONTINUE TO MONITOR.
[2017-11-04] MEDS: SEVELAMER CARBONATE 800 MG TABLET PO SCH ×3 (07:55→17:46)
[2017-11-04 08:00] VITALS: BP 147/73
[2017-11-04] MEDS: DOCUSATE SODIUM 100 MG CAPSULE PO SCH ×2 (09:00→17:46)
[2017-11-04] MEDS: HEPARIN SODIUM, PORCINE 5000 UNITS/1 ML VIAL SQ SCH (09:00)
[2017-11-04] MEDS: VIT B CMPLX 3/FA/VIT C/BIOTIN 1 TAB TABLET PO SCH (09:00)
[2017-11-04] MEDS: AMLODIPINE BESYLATE 5 MG TABLET PO SCH (09:00)
[2017-11-04] MEDS: ISOSORBIDE DINITRATE (20MG) 20 MG TABLET PO SCH ×2 (09:00→17:47)
[2017-11-04] MEDS: hydrALAZINE HCL 50 MG TABLET PO SCH ×3 (09:00→17:47)
[2017-11-04] MEDS: PANTOPRAZOLE 40 MG TABLET.DR PO SCH (09:00)
[2017-11-04] MEDS: ASPIRIN 81 MG TAB.CHEW PO SCH (09:00)
[2017-11-04] MEDS ORDERED: IOHEXOL 0 ML IV ONE (09:33)
[2017-11-04] MEDS ORDERED: HEPARIN SODIUM, PORCINE 1,000 UNIT/ML VIAL ONE (09:33)
[2017-11-04] MEDS ORDERED: LIDOCAINE 1% INJ 50 ML MDV IJ ONE (09:34)
--- NOTE | 2017-11-04 12:30 | NUR ---
RN NOTES PATIENT A/OX3, VERBALLY RESPONSIVE, NO DISTRESS NOTED, R UPPER CHEST PERMACATH INTACT, COVERED WITH CLEAN AND DRY DRESSING. VITALS STABLE. ORDERS FROM DR. VARNER CARRIED OUT. PATIENT IS SCHEDULED TO HAVE DIALYSIS TODAY. WILL HOLD BLOOD PRESSURE MEDICATIONS.
[2017-11-04] MEDS: INSULIN REGULAR, HUMAN 100 UNIT/ML 3 ML VIAL SQ PRN ×2 (12:32→17:56)
[2017-11-04] MEDS ORDERED: SEVE800T7 PO (14:52)
[2017-11-04] MEDS ORDERED: HYDR-4077 PO (14:52)
[2017-11-04] MEDS ORDERED: LEVO250T2 PO (14:52)
[2017-11-04] MEDS ORDERED: ISOS20TA8 PO (14:52)
[2017-11-04] MEDS ORDERED: AMLO5TAB7 PO (14:52)
[2017-11-04] MEDS ORDERED: DOCU-141 PO (14:52)
--- NOTE | 2017-11-04 15:00 | NUR ---
RN NOTES PATIENT STARTED ON HEMODIALYSIS.
[2017-11-04 16:00] VITALS: BP 131/70
[2017-11-04] MEDS: LEVOFLOXACIN (250MG) 250 MG TABLET PO SCH (17:47)
--- NOTE | 2017-11-04 18:56 | NUR ---
RN NOTES PATIENT IS SCHEDULED TO BE DISCHARGED TONIGHT AT [facility], JOB SERVICE SPECIALIST TIME IS 2029. PATIENT COMPLETED A FEW HOURS OF HEMODIALYSIS WITH 2000ML OUTPUT. RIGHT UPPER CHEST PERMACATH DRESSING CHANGED BY HD NURSE, NO S/SX OF BLEEDING ON RIGHT GROIN, DRESSING C/D/I. PATIENT TOLERATED HD WELL, ASSISTED PATIENT TO RESTROOM. VITALS STABLE. NEEDS ATTENDED AND MET, CALL LIGHT WITHIN REACH, WILL ENDORSE TO CUFFER FOR TARAH.
--- NOTE | 2017-11-04 19:30 | NUR ---
MS RN OPENING NOTES RECEIVED PATIENT IN BED, ALERT AND ORIENTED X 3. [place] SPEAKING. FAMILY @ BED SIDE. DENIES SOB. ON O2 AT 2L/MIN VIA NC SATTING 95%. RESPIRATION REGULAR AND UNLABORED. DENIES PAIN. RIGHT HAND G 22 INTACT PATENT, SL. VSS. PT WILL BE DISCHARGED TO [facility] FOR REHAB. WAITING FOR AMBULANCE TO ARRIVE TO PICK HIM UP. BED LOW AND LOCKED. INSTRUCTED PT TO CALL FOR HELP WITHOUT GETTING OUT OF BED BY HIMSELF FOR SAFETY, VERBALIZED UNDERSTANDING. SIDE RAILS UP X2. CALL LIGHT WITHIN REACH. WILL CONTINUE TO MONITOR CLOSELY.
[2017-11-04 20:00] VITALS: BP 115/55
--- NOTE | 2017-11-04 21:16 | NUR ---
MS FACILITIES FLIGHT CHECK PILOT NOTES AMBULANCE ARRIVED, PT IS A & O X 3, VSS 123/63, 88,18,96 % 98.3. ON 2LPM O2 VIA NC. NO SOB, NO C/O PAIN, NO ACUTE DISTRESS NOTED. IN STABLE CONDITION. CALLED THE RECEIVING FACILITY, REPORT GIVEN TO EDWARD YEAGER. ALL DISCHARGE INSTRUCTIONS GIVEN & INVENTORY LIST REVIEWED WITH THE PT & FAMILY, PT & GRAND DTR RONDA, VERBALIZED UNDERSTANDING. ALL PAPERS SIGNED BY RONDA. ID BAND REMOVED, IV ACCESS REMOVED & PRESSURE DRESSING APPLIED. SKIN CLEAR & INTACT. PERMA CATH IN PLACE TO RIGHT UPPER CHEST, DRESSING CLEAN & INTACT. PT TRANSFERRED TO SNF IN STABLE CONDITION VIA AMBULANCE ACCOMPANIED BY FAMILY MEMBERS. MADE AWARE.
== END 2017-11-04 21:20 | DRG 291 ==
LOC: ER 16:38 → TELE 17:38 → MED 10-28 08:41
PROVIDERS: ADMIT Internal Medicine; ATTEND Internal Medicine
PROC: 06HM33Z Insertion of Infusion Device into Right Femoral Vein, Percutaneous Approach (ICD-10-PCS; principal; 2017-11-01)
PROC: B54BZZA Ultrasonography of Right Lower Extremity Veins, Guidance (ICD-10-PCS; 2017-11-01)
PROC: 5A1D70Z Performance of Urinary Filtration, Intermittent, Less than 6 Hours Per Day (ICD-10-PCS; 2017-11-01)
PROC: 5A1D70Z Performance of Urinary Filtration, Intermittent, Less than 6 Hours Per Day (ICD-10-PCS; 2017-11-02)
PROC: 5A1D70Z Performance of Urinary Filtration, Intermittent, Less than 6 Hours Per Day (ICD-10-PCS; 2017-11-03)
PROC: 05HM33Z Insertion of Infusion Device into Right Internal Jugular Vein, Percutaneous Approach (ICD-10-PCS; 2017-11-04)
PROC: B513YZA Fluoroscopy of Right Jugular Veins using Other Contrast, Guidance (ICD-10-PCS; 2017-11-04)
PROC: 5A1D70Z Performance of Urinary Filtration, Intermittent, Less than 6 Hours Per Day (ICD-10-PCS; 2017-11-04)
DX: I13.2 Hypertensive heart and chronic kidney disease with heart failure and with stage 5 chronic kidney disease, or end stage renal disease (principal); N17.0 Acute kidney failure with tubular necrosis; J96.01 Acute respiratory failure with hypoxia; E43 Unspecified severe protein-calorie malnutrition; J45.901 Unspecified asthma with (acute) exacerbation; E11.22 Type 2 diabetes mellitus with diabetic chronic kidney disease; E83.42 Hypomagnesemia; I50.33 Acute on chronic diastolic (congestive) heart failure; N18.6 End stage renal disease; E87.1 Hypo-osmolality and hyponatremia; E11.65 Type 2 diabetes mellitus with hyperglycemia; I11.0 Hypertensive heart disease with heart failure; E87.5 Hyperkalemia; E88.09 Other disorders of plasma-protein metabolism, not elsewhere classified; J20.9 Acute bronchitis, unspecified; J06.9 Acute upper respiratory infection, unspecified; N18.9 Chronic kidney disease, unspecified; E78.5 Hyperlipidemia, unspecified; E03.9 Hypothyroidism, unspecified; N40.0 Benign prostatic hyperplasia without lower urinary tract symptoms; Z91.19 Patient's noncompliance with other medical treatment and regimen; R80.9 Proteinuria, unspecified; D63.8 Anemia in other chronic diseases classified elsewhere; I25.10 Atherosclerotic heart disease of native coronary artery without angina pectoris; E83.9 Disorder of mineral metabolism, unspecified; R07.9 Chest pain, unspecified; Z79.4 Long term (current) use of insulin; D72.828 Other elevated white blood cell count; Z68.29 Body mass index [BMI] 29.0-29.9, adult
CPT/HCPCS: 36415; 71045-TC; 80048-TC; 80053-TC; 80061-TC; 80076-TC; 81000-TC; 82306; 82550-TC; 82553-TC; 82652; 82728-TC; 82746; 82962-TC; 83540-TC; 83735-TC; 83880; 83970; 84100-TC; 84155; 84165; 84439-TC; 84443-TC; 84484-TC; 85025-TC; 85610-TC; 85730-TC; 86704; 86705; 86706; 86850-TC; 87040-TC; 87081-TC; 87086-TC; 87340; 90935-TC; 93307-TC; 94799-TC; 97110-TC; 97116-TC; 97530-TC; A4217; A4606; A6402; C1750; C1751; J0690; J1644; J1815; J1940; J2405; J2704; J2920; J3475; J3490; J7050; Q9967; Z7610

== ENCOUNTER 2018-09-04 17:27 | Inpatient (IN) | payer MEDICARE, OTHER ==
[~2018-09-04] VITALS: Ht 162.6 cm; Wt 78.0 kg
[~2018-09-04 17:27] MED LIST changes: +AMLO5TAB9 PO; -CARV12.52 PO; +DOCU-141 PO; -FURO-144 PO; +HYDR-4077 PO; +ISOS20TA8 PO; +LEVO250T2 PO; +SEVE800T7 PO
--- NOTE | 2018-09-04 17:37 | NUR ---
PT SENT BY PMD FOR POSSIBLE FLUID OVERLOAD AND SOB; PT AAOX4, PT ON MONITOR, VSS, NAD NOTED, PENDING MD ORTA
[2018-09-04 18:43] LABS: BASOPHILS % (AUTO) 0.3 % (0.0-2.0); EOSINOPHILS % (AUTO) 0.4 % (0.0-6.0); HEMATOCRIT 23 % (39-51); HEMOGLOBIN 7.8 g/dL (13.5-17.5); LYMPHOCYTES # (AUTO) 1.3 /CMM (0.8-4.8); LYMPHOCYTES % (AUTO) 16.2 % (20.0-44.0); MEAN CORPUSCULAR HGB CONC 33 g/dl (31.0-36.0); MEAN CORPUSCULAR VOLUME 91 fL (80-96); MONOCYTES # (AUTO) 0.6 /CMM (0.1-1.30); MONOCYTES % (AUTO) 7.1 % (2.0-12.0); NEUTROPHILS # (AUTO) 6.2 /CMM (1.8-8.9); PLATELET COUNT (AUTO) 149 /CMM (150-450); RED BLOOD CELL COUNT(AUTO) 2.55 MIL/uL (4.5-6.0); WHITE BLOOD COUNT (AUTO) 8.1 K/uL (4.3-11.0)
[2018-09-04 18:51] LABS: CARBON DIOXIDE 29 mmol/L (21-32); CHLORIDE 99 mmol/L (98-107); CREATININE 3.1 mg/dL (0.6-1.3); GLUCOSE 155 mg/dL (74-106); POTASSIUM 3.9 mmol/L (3.5-5.1); SODIUM SERUM 136 mmol/L (136-145); UREA NITROGEN, BLOOD 19 mg/dL (7-18)
[2018-09-04 19:03] LABS: ALANINE AMINOTRANSFERASE 12 U/L (12-78); ALKALINE PHOSPHATASE 114 U/L (46-116); ASPARTATE AMINOTRANSFERASE 15 U/L (15-37); B-TYPE NATRIURETIC PEPTIDE 5764 PG/ML (0-125); BILIRUBIN,DIRECT 0.1 mg/dL (0.0-0.2); BILIRUBIN,TOTAL 0.4 mg/dL (0.2-1.0); TOTAL PROTEIN, SERUM 7.2 g/dL (6.4-8.2)
--- NOTE | 2018-09-04 19:22 | NUR ---
REPORT GIVEN TO ANNE MARIE JOSE FOR TARAH
--- NOTE | 2018-09-04 19:36 | NUR ---
DR HOPKINS WAS PAGED FOR A DR TO
--- NOTE | 2018-09-04 19:47 | NUR ---
VI WAS CALLED. SENIOR ORACLE [address] SQL DEVELOPER WAS PAGED.
--- NOTE | 2018-09-04 20:02 | NUR ---
CALLED HOUSE SUP FOR TELE BED
--- NOTE | 2018-09-04 20:12 | NUR ---
TELE BED 311-1 GIVEN
--- NOTE | 2018-09-04 20:14 | NUR ---
CALLED TO GIVE REPORT. WAS TOLD NURSE WOULD CALL BACK.
--- NOTE | 2018-09-04 20:51 | NUR ---
INFLUENZA SWAB DONE AND SENT TO LAB
--- NOTE | 2018-09-04 20:56 | NUR ---
REPORT GIVEN TO REBECA LUI FOR TARAH
[2018-09-04] MEDS ORDERED: HYDROCODONE/APAP 5/325MG 1 EACH TABLET PO PRN (21:00)
[2018-09-04] MEDS ORDERED: Z GUARD REMEDY 2 OZ OINT TP PRN (21:00)
[2018-09-04] MEDS ORDERED: ONDANSETRON HCL/PF 4 MG/2 ML VIAL IVP PRN (21:00)
[2018-09-04] MEDS ORDERED: LEVOFLOXACIN (250MG) 250 MG TABLET PO SCH (21:00)
[2018-09-04] MEDS ORDERED: ACETAMINOPHEN 325 MG TABLET PO PRN (21:00)
[2018-09-04 21:10] VITALS: BP 140/68
--- NOTE | 2018-09-04 21:30 | NUR ---
IMPORT CUSTOMER SERVICE MANAGER ADMITTING NOTES RECEIVED PT VIA KATTY FROM ER ACCOMPANIED BY SON. BREATHING EVEN AND UNLABORED ON ROOM AIR. PER PATIENT, NO COMPLAINT OF PAIN OR DISCOMFORT AT THIS TIME. IV ACCESS ON THE R AC 20G SL, PATENT AND FLUSHING. BRP, AMB WITH ASSIST. BED IN LOWEST LOCKED POSITION, CALL LIGHT WITHIN REACH AT ALL TIMES, WILL CONTINUE TO MONITOR.
[2018-09-04] MEDS: TAMSULOSIN 0.4 MG CAP.SR.24H PO SCH (21:46)
[2018-09-05] VITALS (8 sets, daily range): BP systolic 121–144; BP diastolic 58–80
[2018-09-05 03:33] LABS: BASOPHILS % (AUTO) 0.3 % (0.0-2.0); EOSINOPHILS % (AUTO) 0.6 % (0.0-6.0); LYMPHOCYTES # (AUTO) 1.7 /CMM (0.8-4.8); LYMPHOCYTES % (AUTO) 22.9 % (20.0-44.0); MEAN CORPUSCULAR HGB CONC 34 g/dl (31.0-36.0); MEAN CORPUSCULAR VOLUME 91 fL (80-96); MONOCYTES # (AUTO) 0.6 /CMM (0.1-1.30); NEUTROPHILS # (AUTO) 5.2 /CMM (1.8-8.9); NEUTROPHILS % (AUTO) 68.2 % (43.0-81.0); PLATELET COUNT (AUTO) 144 /CMM (150-450); RED BLOOD CELL COUNT(AUTO) 2.25 MIL/uL (4.5-6.0); WHITE BLOOD COUNT (AUTO) 7.6 K/uL (4.3-11.0)
[2018-09-05 03:48] LABS: HEMATOCRIT 20 % (39-51)
[2018-09-05 03:50] LABS: CALCIUM, SERUM 8.3 mg/dL (8.5-10.1); GLUCOSE 156 mg/dL (74-106); MAGNESIUM 2.1 mg/dL (1.8-2.4); PHOSPHORUS 3.5 mg/dL (2.5-4.9); UREA NITROGEN, BLOOD 28 mg/dL (7-18)
[2018-09-05 03:59] LABS: HDL CHOLESTEROL 21 mg/dL (40-60); LDL 17 mg/dL (0-99); THYROID STIMULATING HORMONE 0.666 uIU/mL (0.358-3.74); TRIGLYCERIDES 129 mg/dL (30-150)
[2018-09-05 04:00] LABS: CARBON DIOXIDE 29 mmol/L (21-32); CHLORIDE 101 mmol/L (98-107); CHOLESTEROL < 50 mg/dL (<200); POTASSIUM 4.8 mmol/L (3.5-5.1); SODIUM SERUM 138 mmol/L (136-145)
[2018-09-05] MEDS ORDERED: CEFTRIAXONE 2 G in IV NS 0.9% 100 ML IV SCH (04:00)
[2018-09-05] MEDS ORDERED: CEFTRIAXONE 1 G VIAL ONE (04:06)
--- NOTE | 2018-09-05 05:15 | NUR ---
CRITICAL LAB VALUE OF H/H 7.0/20, REPORTED TO CHERELLE STEELE, ORDERED PRBCs 1 UNIT. CONSENT FOR BLOOD TRANSFUSION OBTAINED, TYPE AND SCREEN DRAWN, AWAITING BLOOD PRODUCT
--- NOTE | 2018-09-05 06:14 | NUR ---
RN MS CLOSING NOTES PT REMAINS IN BED, SLEEPING, EASILY AROUSED TO TOUCH AND NAME CALL. BREATHING EVEN AND UNLABORED ON ROOM AIR. IN NO APPARENT PAIN OR DISCOMFORT AT THIS TIME. IV ACCESS ON THE RIGHT AC 20G PATENT AND FLUSHING. ALL NEEDS ATTENDED TO, BED IN LOWEST LOCKED POSITION, CALL LIGHT WITHIN REACH AT ALL TIMES.
[2018-09-05] MEDS ORDERED: PANTOPRAZOLE 40 MG TABLET.DR PO SCH (07:30)
--- NOTE | 2018-09-05 08:00 | NUR ---
PHOTOFINISHING LABORATORY WORKER OPENING NOTES PATIENT RECEIVED ON BED WITH HOB ELEVATED, A/O X 4 AND ESTONIAN SPEAKING ONLY. RESPIRATION EVEN AND NON LABORED WITH NO ACUTE RESPIRATORY DISTRESS. DENIES PAIN AND DISCOMFORT NOTED. ABDOMEN SOFT AND NON DISTENDED WITH ACTIVE BOWEL SOUNDS, CONTINENT IN B&B. SKIN WARM TO TOUCH, INTACT AND DRY. IV SITE ON RIGHT ANTECUBITAL, PATENT WITH NO INFILTRATION NOTED, HOLD IV AT THIS TIME. CURRENTLY ON NPO, PROVIDED ORAL HYGIENE. ALL CONCERNS ATTENDED WITH CALL LIGHT PLACED WITHIN REACH FOR SAFETY. WILL CONTINUE TO EVALUATE CARE.
[2018-09-05] MEDS ORDERED: INSULIN GLARGINE, 100 UNIT/ML CARTRIDGE SQ SCH (09:00)
[2018-09-05] MEDS: INSULIN GLARGINE, 100 UNIT/ML CARTRIDGE SQ SCH ×4 (09:00→18:16)
[2018-09-05] MEDS: ISOSORBIDE DINITRATE (20MG) 20 MG TABLET PO SCH ×2 (09:00→17:00)
[2018-09-05] MEDS: hydrALAZINE HCL 50 MG TABLET PO SCH ×3 (09:00→17:00)
[2018-09-05] MEDS ORDERED: AMLODIPINE BESYLATE 5 MG TABLET PO SCH (09:00)
[2018-09-05] MEDS ORDERED: PANTOPRAZOLE 40 MG VIAL IV SCH ×2 (09:00)
--- NOTE | 2018-09-05 09:06 | NUR ---
MS/RN SEEN BY DR STEVENS WITH ORDER TO START DIET RENAL STANDARD DIET. NO ORDERS FOR ANY SCOPING AT THIS TIME PER DR STEVENS. PATIENT NOTIFIED.
--- NOTE | 2018-09-05 09:59 | NUR ---
MS/RN SEEN BY IVETTE ALVAREZ WITH ORDERS TO DC BLOOD TRANSFUSION ORDER. PATIENT H/H 7.0/20L. PER IVETTE ALVAREZ NO NEED TO TRANSFUSE UNLESS HGB < 7.0. AND AWAIT FOR STOOL OB. PATIENT NOTIFIED.
--- NOTE | 2018-09-05 10:09 | NUR ---
MS/REBECA LEIJA FROM BLOOD BANK NOTIFIED REGARDING BLOOD TRANSFUSION ORDERS DISCONTINUED.
[2018-09-05] MEDS: SEVELAMER CARBONATE 800 MG TABLET PO SCH ×3 (10:12→17:58)
[2018-09-05] MEDS: AZITHROMYCIN 250 MG TABLET PO SCH (10:12)
[2018-09-05] MEDS: DOCUSATE SODIUM 100 MG CAPSULE PO SCH ×2 (10:12→17:59)
[2018-09-05] MEDS: ASPIRIN 81 MG TAB.CHEW PO SCH (10:12)
--- NOTE | 2018-09-05 10:24 | NUR ---
MS/RN ALL 9AM BLOOD PRESSURE MEDICATIONS HELD SECONDARY TO PATIENT SCHEDULE FOR POSSIBLE DIALYSIS TODAY PER DIALYSIS NURSE.
[2018-09-05] MEDS ORDERED: DOCUSATE SODIUM 100 MG CAPSULE PO SCH (17:00)
[2018-09-05 17:03] LABS: OCCULT BLOOD STOOL NEGATIVE (NEGATIVE)
[2018-09-05] MEDS: LACTOBACILLUS RHAMNOSUS GG 1 EACH CAP.SPRINK PO SCH (17:59)
--- NOTE | 2018-09-05 18:00 | NUR ---
SECRETARY OF STATE ISOSORBIDE AND HYDRALAZINE NOT GIVEN DUE TO PATIENT RECEIVING DIALYSIS. WILL CONTINUE TO MONITOR PATIENTS CONDITION.
--- NOTE | 2018-09-05 18:28 | NUR ---
ASSISTANT PROFESSOR OF PHYSICS INSULIN DUE NOT GIVEN CAUSE PATIENT IS ON DIALYSIS AND HAVEN'T EATEN DINNER YET
--- NOTE | 2018-09-05 19:12 | NUR ---
TELE/RN BLOOD TRANSFUSION ONGOING STARTED AT 1755 REPORT GIVEN TO REBECA VALADEZ FOR TARAH AND MADE AWARE TO END TRANSFUSION, ALSO NOTIFIED ONGOING DIALYSIS TREATMENT AT THIS TIME.
--- NOTE | 2018-09-05 19:17 | NUR ---
NATURAL RESOURCES SPECIALIST CLOSING NOTES PATIENT ON BED WITH HEAD OF BED ELEVATED, A/O X 4 AND ABLE TO MAKE NEEDS KNOWN. RESPIRATION EVEN AND NON LABORED WITH NO ACUTE RESPIRATORY DISTRESS. ABDOMEN SOFT AND NON DISTENDED WITH ACTIVE BOWEL SOUNDS, BM TODAY WITH BROWN SOFT STOOL. DENIES PAIN AND DISCOMFORT THROUGHOUT THE SHIFT. SKIN WARM TO TOUCH, INTACT AND DRY. IV SITE ON RIGHT ANTECUBITAL GAUGE 20 WITH NO S/SX OF INFILTRATION, RIGHT UPPER CHEST WITH HEMODIALYSIS SITE. IV INFUSION ON HOLD THROUGHOUT THE SHIFT. DIET CONTINUED RENAL DIET WITH ASPIRATION PRECAUTION. PATIENT ON FALL PRECAUTION DUE TO UNSTEADINESS OF GAIT AND WEAKNESS. ALL CONCERNS ATTENDED WITH CALL LIGHT PLACED WITHIN REACH TO ENSURE SAFETY. PATIENT ON DIALYSIS AND BLOOD TRANSFUSION PROCESS WHEN ENDORSED TO NEXT SHIFT FOR CONTINUITY OF CARE.
--- NOTE | 2018-09-05 19:35 | NUR ---
RN MS OPENING NOTES RECEIVED PT IN BED, AWAKE, ALERT ORIENTEDX4, BREATHING EVEN AND UNLABORED, CURRENTLY TRANSFUSING 1 UNIT OF PRBC WITH DIALYSIS VIA RIGHT UPPER CHEST CALL CATH, BP OF 148/63/ 2300ML OUT PER DIALYSIS NURSE. IV ACCESS ON THE R AC 20G PATENT AND FLUSHING. BED IN LOWEST LOCKED POSITION, CALL LIGHT WITHIN REACH AT ALL TIMES, WILL CONTINUE TO MONITOR
--- NOTE | 2018-09-05 19:50 | NUR ---
TRANSFUSION ENDED, BP OF 144/65 67 TEMP OF 97.2 O2 96%
[2018-09-05] MEDS: METOPROLOL TARTRATE 25 MG TABLET PO SCH (21:20)
[2018-09-05] MEDS: TAMSULOSIN 0.4 MG CAP.SR.24H PO SCH (21:20)
[2018-09-05] MEDS ORDERED: ATORVASTATIN 40 MG TABLET PO SCH (22:00)
[2018-09-06 00:17] VITALS: BP 121/55
[2018-09-06 04:36] VITALS: BP 122/61
[2018-09-06] MEDS ORDERED: CEFTRIAXONE 1 G in IV D5W 50 ML IV SCH (05:00)
--- NOTE | 2018-09-06 06:43 | NUR ---
RN MS CLOSING NOTES PT REMAINS IN BED, SLEEPING, EASILY AROUSED TO TOUCH AND NAME CALL. BREATHING EVEN AND UNLABORED ON ROOM AIR. IN NO APPARENT PAIN OR DISCOMFORT AT THIS TIME. IV ACCESS ON THE RIGHT AC 20G PATENT AND FLUSHING. ALL NEEDS ATTENDED TO, BED IN LOWEST LOCKED POSITION, CALL LIGHT WITHIN REACH AT ALL TIMES. TRANSFER PACKED READY, AMBULNZ SCHEDULED FOR SIGN LETTERER AT 7:30 FOR TRANSFER TO [facility]. WILL ENDORSE TO DAY NURSE FOR TARAH
[2018-09-06] MEDS ORDERED: PANTOPRAZOLE 40 MG TABLET.DR PO SCH (07:30)
--- NOTE | 2018-09-06 07:30 | NUR ---
ms rn received on bed, awake,alert,oriented x3,not in any form of distress, respirations even and unlabored,no sob noted, patient ready to be transferred to another hospital for cardiac cath, all needs attended.
--- NOTE | 2018-09-06 07:35 | NUR ---
ms rn patient transferred via ambulance,all needs attended.
[2018-09-06 07:36] LABS: BASOPHILS % (AUTO) 0.3 % (0.0-2.0); EOSINOPHILS % (AUTO) 1.1 % (0.0-6.0); HEMATOCRIT 24 % (39-51); HEMOGLOBIN 8.3 g/dL (13.5-17.5); LYMPHOCYTES # (AUTO) 1.9 /CMM (0.8-4.8); LYMPHOCYTES % (AUTO) 23.9 % (20.0-44.0); MEAN CORPUSCULAR HGB CONC 34 g/dl (31.0-36.0); MEAN CORPUSCULAR VOLUME 89 fL (80-96); MONOCYTES # (AUTO) 0.7 /CMM (0.1-1.30); MONOCYTES % (AUTO) 8.3 % (2.0-12.0); NEUTROPHILS # (AUTO) 5.3 /CMM (1.8-8.9); NEUTROPHILS % (AUTO) 66.4 % (43.0-81.0); PLATELET COUNT (AUTO) 140 /CMM (150-450); RED BLOOD CELL COUNT(AUTO) 2.72 MIL/uL (4.5-6.0)
[2018-09-06 07:49] LABS: ALANINE AMINOTRANSFERASE 13 U/L (12-78); ALBUMIN 2.8 g/dL (3.4-5.0); ALKALINE PHOSPHATASE 102 U/L (46-116); ASPARTATE AMINOTRANSFERASE 16 U/L (15-37); BILIRUBIN,TOTAL 0.4 mg/dL (0.2-1.0); CALCIUM, SERUM 8.4 mg/dL (8.5-10.1); CARBON DIOXIDE 29 mmol/L (21-32); CHLORIDE 98 mmol/L (98-107); GLUCOSE 112 mg/dL (74-106); MAGNESIUM 2.1 mg/dL (1.8-2.4); PHOSPHORUS 3.4 mg/dL (2.5-4.9); POTASSIUM 4.2 mmol/L (3.5-5.1); SODIUM SERUM 135 mmol/L (136-145); TOTAL PROTEIN, SERUM 6.7 g/dL (6.4-8.2); UREA NITROGEN, BLOOD 29 mg/dL (7-18)
[2018-09-06] MEDS: SEVELAMER CARBONATE 800 MG TABLET PO SCH (08:00)
[2018-09-06] MEDS: hydrALAZINE HCL 50 MG TABLET PO SCH (08:09)
[2018-09-06] MEDS: METOPROLOL TARTRATE 25 MG TABLET PO SCH (08:10)
[2018-09-06] MEDS: ASPIRIN 81 MG TAB.CHEW PO SCH (08:10)
[2018-09-06] MEDS: ISOSORBIDE DINITRATE (20MG) 20 MG TABLET PO SCH (08:10)
[2018-09-06] MEDS: LACTOBACILLUS RHAMNOSUS GG 1 EACH CAP.SPRINK PO SCH (08:10)
[2018-09-06] MEDS: DOCUSATE SODIUM 100 MG CAPSULE PO SCH (08:10)
[2018-09-06] MEDS: INSULIN GLARGINE, 100 UNIT/ML CARTRIDGE SQ SCH (08:11)
[2018-09-06] MEDS: AZITHROMYCIN 250 MG TABLET PO SCH (08:11)
--- NOTE | 2018-09-06 12:35 | NUR ---
ms rn called [facility], patient won't be back here, will be kept there for observation.
== END 2018-09-06 07:40 | disposition short-term general hospital (02) | DRG 280 ==
LOC: ER 17:42 → TELE 20:16
PROVIDERS: ADMIT Registered Nurse; ATTEND Nurse Practitioner Acute Care
PROC: 30233N1 Transfusion of Nonautologous Red Blood Cells into Peripheral Vein, Percutaneous Approach (ICD-10-PCS; principal; 2018-09-05)
PROC: 5A1D70Z Performance of Urinary Filtration, Intermittent, Less than 6 Hours Per Day (ICD-10-PCS; 2018-09-05)
DX: I13.2 Hypertensive heart and chronic kidney disease with heart failure and with stage 5 chronic kidney disease, or end stage renal disease (principal); J15.6 Pneumonia due to other Gram-negative bacteria; I21.A1 Myocardial infarction type 2; N18.6 End stage renal disease; J96.01 Acute respiratory failure with hypoxia; I50.33 Acute on chronic diastolic (congestive) heart failure; E44.0 Moderate protein-calorie malnutrition; E11.21 Type 2 diabetes mellitus with diabetic nephropathy; E11.22 Type 2 diabetes mellitus with diabetic chronic kidney disease; E78.5 Hyperlipidemia, unspecified; E66.9 Obesity, unspecified; E88.09 Other disorders of plasma-protein metabolism, not elsewhere classified; N40.0 Benign prostatic hyperplasia without lower urinary tract symptoms; Z99.2 Dependence on renal dialysis; Z98.61 Coronary angioplasty status; D63.1 Anemia in chronic kidney disease; R53.1 Weakness; Z68.29 Body mass index [BMI] 29.0-29.9, adult; E11.65 Type 2 diabetes mellitus with hyperglycemia; Z79.4 Long term (current) use of insulin; E03.9 Hypothyroidism, unspecified; I25.10 Atherosclerotic heart disease of native coronary artery without angina pectoris
CPT/HCPCS: 36415; 71045-TC; 80048-TC; 80053-TC; 80061-TC; 80076-TC; 82272-TC; 82962-TC; 83735-TC; 83880; 84100-TC; 84443-TC; 84484-TC; 85025-TC; 86850-TC; 86921-TC; 87040-TC; 87081-TC; 87400; 90935-TC; 93307-TC; G0378; J0696; J1815; J7030; J7050; J7060; P9016-BL

== ENCOUNTER 2019-06-22 07:04 | Inpatient (IN) | payer MEDICARE, OTHER ==
[~2019-06-22] VITALS: Ht 167.6 cm; Wt 76.2 kg
--- NOTE | 2019-06-22 07:12 | NUR ---
PT CAME TO ER BED 2 C/O SHORTNESS OF BREATH. PT STATES HE GOES TO DIALYSIS Tuesday AND TUESDAY. PT PLACED ON 2L OF OXYGEN, 02 SAT AT 97%. AAOX4. NOT IN ANY DISTRESS. CONNECTED TO MONITOR.
--- NOTE | 2019-06-22 07:32 | NUR ---
FLU SWAB COLLECTED AND SENT TO LAB
[2019-06-22 08:03] LABS: BASOPHILS % (AUTO) 0.5 % (0.0-2.0); HEMATOCRIT 28 % (39-51); HEMOGLOBIN 9.4 g/dL (13.5-17.5); LYMPHOCYTES % (AUTO) 13.4 % (20.0-44.0); MEAN CORPUSCULAR HGB CONC 33 g/dl (31.0-36.0); MEAN CORPUSCULAR VOLUME 90 fL (80-96); MONOCYTES # (AUTO) 0.6 /CMM (0.1-1.30); MONOCYTES % (AUTO) 7.4 % (2.0-12.0); NEUTROPHILS # (AUTO) 5.9 /CMM (1.8-8.9); NEUTROPHILS % (AUTO) 78.7 % (43.0-81.0); PLATELET COUNT (AUTO) 152 /CMM (150-450); RED BLOOD CELL COUNT(AUTO) 3.11 MIL/uL (4.5-6.0); WHITE BLOOD COUNT (AUTO) 7.5 K/uL (4.3-11.0)
[2019-06-22 08:06] LABS: CALCIUM, SERUM 8.3 mg/dL (8.5-10.1); CARBON DIOXIDE 26 mmol/L (21-32); CHLORIDE 93 mmol/L (98-107); GLUCOSE 154 mg/dL (74-106); SODIUM SERUM 133 mmol/L (136-145); UREA NITROGEN, BLOOD 76 mg/dL (7-18)
[2019-06-22 08:11] LABS: CREATININE 9.5 mg/dL (0.6-1.3); POTASSIUM 6.7 mmol/L (3.5-5.1)
[2019-06-22 08:15] LABS: ALANINE AMINOTRANSFERASE 15 U/L (12-78); ALBUMIN 3.4 g/dL (3.4-5.0); ALKALINE PHOSPHATASE 138 U/L (46-116); ASPARTATE AMINOTRANSFERASE 14 U/L (15-37); B-TYPE NATRIURETIC PEPTIDE 17047 PG/ML (0-125); BILIRUBIN,DIRECT 0.2 mg/dL (0.0-0.2); BILIRUBIN,TOTAL 0.7 mg/dL (0.2-1.0); TOTAL PROTEIN, SERUM 7.7 g/dL (6.4-8.2)
[2019-06-22] MEDS ORDERED: ALBUTEROL FS 2.5 MG/3 ML VIAL.NEB ONE (08:29)
[2019-06-22] MEDS ORDERED: SODIUM BICARBONATE SYR 50 MEQ/50 ML DISP.SYRIN IV ONE (08:30)
[2019-06-22] MEDS ORDERED: CALCIUM CHLORIDE 1,000 MG/10 ML DISP.SYRIN IV ONE (08:30)
[2019-06-22] MEDS ORDERED: ALBUTEROL FS 2.5 MG/3 ML VIAL.NEB NEB ONE (08:30)
[2019-06-22] MEDS ORDERED: SODIUM BICARBONATE SYR 50 MEQ/50 ML DISP.SYRIN ONE (08:31)
[2019-06-22] MEDS ORDERED: CALCIUM CHLORIDE 1,000 MG/10 ML DISP.SYRIN ONE (08:31)
--- NOTE | 2019-06-22 08:45 | NUR ---
MEDICATED PER ERMD ORDER & PT'S GETTING BREATHING TX, PT ANGELITA WELL.
--- NOTE | 2019-06-22 08:47 | NUR ---
CALLED [facility].
--- NOTE | 2019-06-22 09:04 | NUR ---
CALLED NURSING SUP FOR ALFONSO BED.
--- NOTE | 2019-06-22 09:32 | NUR ---
NURSING SUP GAVE ALFONSO BED 115-2.
[2019-06-22] MEDS ORDERED: Z GUARD REMEDY 2 OZ OINT TP PRN (10:00)
[2019-06-22] MEDS ORDERED: ACETAMINOPHEN 325 MG TABLET PO PRN (10:00)
[2019-06-22] MEDS ORDERED: MAG HYDROX/AL HYDROX/SIMETH 30 ML UDC PO PRN (10:00)
[2019-06-22] MEDS ORDERED: DEXTROSE 50%-WATER 50 ML DISP.SYRIN IV PRN (10:00)
[2019-06-22] MEDS ORDERED: MAGNESIUM HYDROXIDE 30 ML UDC PO PRN (10:00)
--- NOTE | 2019-06-22 10:13 | NUR ---
REPORT GIVEN TO REBECA GILLESPIE FOR TARAH.
[2019-06-22 10:45] VITALS: BP 127/73
--- NOTE | 2019-06-22 10:45 | NUR ---
RN NOTE RECEIVED PT ON BED FROM ER, HAS DIFFICULTY AMBULATING WITHOUT WALKER, ONLY YORUBA SPEAKING, NO CO OF SOB OR DISTRESS, CO HEADACHE AND NECK ACHE, 10/27. VS STABLE, NO FEVER, AWAITING HD. SR ON THE LEATHER CARVER. IV SITE INTACT IN R AC, LEFT UPPER ARM AV SHUNT WITH THRILL/BRUIT PRESENT, CALL LIGHT WITHIN REACH, BED IN LOW AND LOCKED POSITION, BED ALARM ON, WILL MONITOR.
[2019-06-22] MEDS: BLOOD SUGAR DIAGNOSTIC 1 EACH STRIP IN SCH ×3 (12:35→21:08)
[2019-06-22] MEDS: SEVELAMER CARBONATE 800 MG TABLET PO SCH ×2 (12:36→17:10)
[2019-06-22] MEDS: HYDROCODONE/APAP 5/325MG 1 EACH TABLET PO PRN (12:38)
[2019-06-22] MEDS: INSULIN REGULAR, HUMAN 100 UNIT/ML 3 ML VIAL SQ PRN (12:42)
[2019-06-22] MEDS: hydrALAZINE HCL 50 MG TABLET PO SCH ×2 (13:00→17:11)
[2019-06-22] MEDS: INSULIN GLARGINE, 100 UNIT/ML CARTRIDGE SQ SCH ×2 (13:00→17:26)
--- NOTE | 2019-06-22 13:00 | NUR ---
BP MEDS HELD DUE TO HD.
[2019-06-22 16:00] VITALS: BP 124/72
[2019-06-22] MEDS: CEFTRIAXONE 1 G in IV D5W 50 ML IV SCH (16:18)
[2019-06-22] MEDS: AZITHROMYCIN 500 MG in IV D5W 250 ML IV SCH (17:10)
[2019-06-22] MEDS: ISOSORBIDE DINITRATE (20MG) 20 MG TABLET PO SCH (17:10)
[2019-06-22] MEDS: DOCUSATE SODIUM 100 MG CAPSULE PO SCH (17:10)
--- NOTE | 2019-06-22 19:00 | NUR ---
CONTINUOUS WELD PIPE MILL SUPERVISOR NOTE RECEIVED PT IN STABLE CONDITION, A/O X4, WITH SON AT BEDSIDE. TELE MONITOR: SR74. NO SIGNS OF SOB OR DISTRESS. NO C/O PAIN OR N/V. RAC #[address] S/L. ALL CURRENT NEEDS ATTENDED TO. BED LOW, LOCKED, UPPER RAILS UP AND CALL LIGHT WITHIN REACH.
--- NOTE | 2019-06-22 19:00 | NUR ---
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
[2019-06-22] MEDS ORDERED: INSU100V7 SQ (19:21)
[2019-06-22 20:00] VITALS: BP 122/64
[2019-06-22] MEDS: TAMSULOSIN 0.4 MG CAP.SR.24H PO SCH (21:02)
[2019-06-23] VITALS: BP 122/46
[2019-06-23] MEDS: HYDROCODONE/APAP 5/325MG 1 EACH TABLET PO PRN ×2 (02:39→15:30)
[2019-06-23 04:00] VITALS: BP 135/59
--- NOTE | 2019-06-23 06:12 | NUR ---
FILE KEEPER NOTE PT REMAINS IN STABLE CONDITION, A/O X4, RESTING IN BED. TELE MONITOR: SR 75 W/ BBB. NO SIGNS OF SOB OR DISTRESS. NO C/O PAIN OR N/V. RAC #[address] S/L. ALL CURRENT NEEDS ATTENDED TO. BED LOW, LOCKED, UPPER RAILS UP AND CALL LIGHT WITHIN REACH. WILL ENDORSE TO NEXT SHIFT FOR TARAH.
[2019-06-23 06:46] LABS: BASOPHILS % (AUTO) 0.6 % (0.0-2.0); EOSINOPHILS % (AUTO) 0.1 % (0.0-6.0); HEMATOCRIT 25 % (39-51); HEMOGLOBIN 8.2 g/dL (13.5-17.5); LYMPHOCYTES # (AUTO) 1.2 /CMM (0.8-4.8); LYMPHOCYTES % (AUTO) 20.3 % (20.0-44.0); MEAN CORPUSCULAR HGB CONC 34 g/dl (31.0-36.0); MEAN CORPUSCULAR VOLUME 90 fL (80-96); MONOCYTES # (AUTO) 0.5 /CMM (0.1-1.30); MONOCYTES % (AUTO) 8.6 % (2.0-12.0); NEUTROPHILS # (AUTO) 4.1 /CMM (1.8-8.9); NEUTROPHILS % (AUTO) 70.4 % (43.0-81.0); PLATELET COUNT (AUTO) 129 /CMM (150-450); RED BLOOD CELL COUNT(AUTO) 2.73 MIL/uL (4.5-6.0); WHITE BLOOD COUNT (AUTO) 5.8 K/uL (4.3-11.0)
[2019-06-23 07:20] LABS: CALCIUM, SERUM 8.3 mg/dL (8.5-10.1); CARBON DIOXIDE 27 mmol/L (21-32); CHLORIDE 98 mmol/L (98-107); GLUCOSE 73 mg/dL (74-106); MAGNESIUM 2.4 mg/dL (1.8-2.4); PHOSPHORUS 6.3 mg/dL (2.5-4.9); POTASSIUM 5.7 mmol/L (3.5-5.1); SODIUM SERUM 136 mmol/L (136-145); UREA NITROGEN, BLOOD 54 mg/dL (7-18)
[2019-06-23 07:26] LABS: CREATININE 7.7 mg/dL (0.6-1.3)
--- NOTE | 2019-06-23 07:43 | NUR ---
SEARCH ENGINE OPTIMIZATION SPECIALIST OPENING NOTE PATIENT IN BED RESTING COMFORTABLY. PATIENT IN NO ACUTE DISTRESS. NO SOB NOTED. PATIENT BREATHING IS EVEN AND UNLABORED. PATIENT CURRENTLY RECEIVING DIALYSIS. PATIENT ON CARDIAC MONITORING READING SINUS RHYTHM HR 74 WITH BBB. PATIENT BED ALARM IS ON. SAFETY PRECAUTIONS IN PLACE. PATIENT BED IS LOCKED AND IN LOWEST POSITION. CALL LIGHT WITHIN REACH. WILL CONTINUE TO MONITOR.
[2019-06-23 07:49] LABS: CHOLESTEROL 84 mg/dL (<200); HDL CHOLESTEROL 31 mg/dL (40-60); LDL 46 mg/dL (0-99); THYROID STIMULATING HORMONE 0.777 uIU/mL (0.358-3.74); TRIGLYCERIDES 73 mg/dL (30-150)
[2019-06-23] MEDS: BLOOD SUGAR DIAGNOSTIC 1 EACH STRIP IN SCH ×4 (07:54→21:17)
[2019-06-23 08:05] VITALS: BP 103/56
--- NOTE | 2019-06-23 08:07 | NUR ---
TELEMARKETER NOTE PATIENT BLOOD SUGAR IS 71. NO INSULIN COVERAGE NEEDED PER PROTOCOL AND HELD LANTUS INSULIN THIS AM. HELD BP MEDS DUE TO DECREASED BP AND PATIENT UNDERGOING DIALYSIS.
[2019-06-23] MEDS: ISOSORBIDE DINITRATE (20MG) 20 MG TABLET PO SCH ×2 (08:09→16:43)
[2019-06-23] MEDS: hydrALAZINE HCL 50 MG TABLET PO SCH ×3 (08:09→16:43)
[2019-06-23] MEDS: INSULIN GLARGINE, 100 UNIT/ML CARTRIDGE SQ SCH ×3 (08:10→16:42)
[2019-06-23] MEDS: AMLODIPINE BESYLATE 5 MG TABLET PO SCH (08:10)
[2019-06-23] MEDS: SEVELAMER CARBONATE 800 MG TABLET PO SCH ×3 (08:39→17:12)
[2019-06-23] MEDS: DOCUSATE SODIUM 100 MG CAPSULE PO SCH ×2 (08:39→16:43)
[2019-06-23] MEDS: ASPIRIN 81 MG TAB.CHEW PO SCH (08:39)
--- NOTE | 2019-06-23 11:37 | NUR ---
RADIO OPERATOR NOTE BLOOD SUGAR IS 80 NO INSULIN COVERAGE PER PROTOCOL.
[2019-06-23 12:00] VITALS: BP 143/79
--- NOTE | 2019-06-23 12:24 | NUR ---
ARMHOLE BASTER JUMPBASTING NOTE HELD LANTUS 1300. BLOOD SUGAR 80.
[2019-06-23] MEDS: CEFTRIAXONE 1 G in IV D5W 50 ML IV SCH (14:23)
[2019-06-23] MEDS: AZITHROMYCIN 500 MG in IV D5W 250 ML IV SCH (15:29)
--- NOTE | 2019-06-23 15:45 | NUR ---
MARKETING INTELLIGENCE ANALYST NOTES PATIENT POSITIVE MRSA NARES. SPOKEN WITH WILLA RIZZO. ORDERS FOR BACTROBAN OF THE NARES BID.
[2019-06-23 16:00] VITALS: BP 139/74
[2019-06-23] MEDS: INSULIN REGULAR, HUMAN 100 UNIT/ML 3 ML VIAL SQ PRN (16:41)
[2019-06-23] MEDS: ONDANSETRON HCL/PF 4 MG/2 ML VIAL IVP PRN (17:12)
--- NOTE | 2019-06-23 19:13 | NUR ---
BOILER TESTING TECHNICIAN CLOSING NOTE PATIENT IN BED RESTING COMFORTABLY. PATIENT IN NO ACUTE DISTRESS. NO SOB NOTED. PATIENT BREATHING IS EVEN AND UNLABORED. SON AT THE BEDSIDE/ PATIENT ON CARDIAC MONITORING READING SINUS RHYTHM HR 85 WITH BBB. PATIENT BED ALARM IS ON. SAFETY PRECAUTIONS IN PLACE. PATIENT KEPT CLEAN DRY AND COMFORTABLE THROUGHOUT SHIFT.PATIENT BED IS LOCKED AND IN LOWEST POSITION. CALL LIGHT WITHIN REACH. WILL ENDORSE CARE TO PM SHIFT.
[2019-06-23 20:00] VITALS: BP 115/63
--- NOTE | 2019-06-23 20:00 | NUR ---
DOPE WORKER NOTES RECEIVED PATIENT AWAKE IN BED WITH NO DISTRESS NOTED. NO C/O PAIN OR DISCOMFORT. PERIPHERAL LINE INTACT AND PATENT. CONTACT ISOLATION OBSERVED AND MAINTAINED AT ALL TIMES. ENCOURAGED USE OF CALL LIGHT FOR ASSISTANCE AND DEMONSTRATED GOOD UNDERSTANDING. BED IN LOW LOCK SETTING WITH BED ALARM ON AND FUNCTIONING PROPERLY. ROOM FREE OF CLUTTER AND BELONGINGS KEPT NEAR BEDSIDE. WILL CONTINUE TO MONITOR.
[2019-06-23] MEDS: TAMSULOSIN 0.4 MG CAP.SR.24H PO SCH (21:13)
[2019-06-23] MEDS: MUPIROCIN OINT 2% 22 GM TUBE SCH (21:13)
[2019-06-24] VITALS (7 sets, daily range): BP systolic 118–152; BP diastolic 56–71
[2019-06-24] MEDS: HYDROCODONE/APAP 5/325MG 1 EACH TABLET PO PRN ×2 (02:25→22:54)
--- NOTE | 2019-06-24 06:27 | NUR ---
HIGH PRESSURE KETTLE OPERATOR NOTES PATIENT ASLEEP IN BED WITH NO DISTRESS NOTED. CALL LIGHT WITHIN REACH. ALL DUE MEDS GIVEN ORDERED WITH NO ASE NOTED. PERIPHERAL LINE INTACT AND PATENT. NERY AV SHUNT INTACT WITH NO REDNESS, SWELLING, OR BLEEDING NOTED AND WITH (+) BRUIT AND THRILL. CONTACT ISOLATION OBSERVED AND MAINTAINED AT ALL TIMES. BED IN LOW LOCK SETTING WITH BED ALARM ON AND FUNCTIONING PROPERLY. ROOM FREE OF CLUTTER AND BELONGINGS KEPT NEAR BEDSIDE. WILL ENDORSE TO ONCOMING SHIFT.
[2019-06-24 07:13] LABS: BASOPHILS % (AUTO) 0.8 % (0.0-2.0); EOSINOPHILS % (AUTO) 0.1 % (0.0-6.0); HEMATOCRIT 26 % (39-51); HEMOGLOBIN 8.8 g/dL (13.5-17.5); LYMPHOCYTES # (AUTO) 0.9 /CMM (0.8-4.8); LYMPHOCYTES % (AUTO) 16.6 % (20.0-44.0); MEAN CORPUSCULAR HGB CONC 34 g/dl (31.0-36.0); MEAN CORPUSCULAR VOLUME 91 fL (80-96); MONOCYTES # (AUTO) 0.5 /CMM (0.1-1.30); MONOCYTES % (AUTO) 9.5 % (2.0-12.0); NEUTROPHILS # (AUTO) 4.2 /CMM (1.8-8.9); PLATELET COUNT (AUTO) 135 /CMM (150-450); RED BLOOD CELL COUNT(AUTO) 2.86 MIL/uL (4.5-6.0); WHITE BLOOD COUNT (AUTO) 5.7 K/uL (4.3-11.0)
[2019-06-24 07:31] LABS: CALCIUM, SERUM 8.7 mg/dL (8.5-10.1); CARBON DIOXIDE 30 mmol/L (21-32); CHLORIDE 98 mmol/L (98-107); CREATININE 5.8 mg/dL (0.6-1.3); GLUCOSE 92 mg/dL (74-106); POTASSIUM 5.3 mmol/L (3.5-5.1); SODIUM SERUM 139 mmol/L (136-145); UREA NITROGEN, BLOOD 33 mg/dL (7-18)
--- NOTE | 2019-06-24 08:00 | NUR ---
RN TRAUMA NOTES PATIENT IN BED, RESTLESS AND REMOVE RT AC HL ,NEW HL ON RT HAND CHRISTINE 22 INSERTED DISTRESS CALL LIGHT WITHIN REACH. NERY AV SHUNT INTACT WITH NO REDNESS, SWELLING, OR BLEEDING NOTED AND WITH (+) BRUIT AND THRILL. CONTACT ISOLATION OBSERVED AND MAINTAINED AT ALL TIMES. BED IN LOW LOCK SETTING WITH BED ALARM ON AND FUNCTIONING PROPERLY. ABLE TO EAT BREAKFAST SELF ,BLOOD SUGAR RECHECK AND NOW 91MG\DL HOLD INSULIN AT THIS TIME WILL CONT TO MONITOR CLOSELY
[2019-06-24] MEDS: DOCUSATE SODIUM 100 MG CAPSULE PO SCH ×2 (08:41→17:12)
[2019-06-24] MEDS: AMLODIPINE BESYLATE 5 MG TABLET PO SCH (08:42)
[2019-06-24] MEDS: ASPIRIN 81 MG TAB.CHEW PO SCH (08:42)
[2019-06-24] MEDS: SEVELAMER CARBONATE 800 MG TABLET PO SCH ×3 (08:42→17:12)
[2019-06-24] MEDS: ISOSORBIDE DINITRATE (20MG) 20 MG TABLET PO SCH ×2 (08:42→17:13)
[2019-06-24] MEDS: INSULIN GLARGINE, 100 UNIT/ML CARTRIDGE SQ SCH ×3 (08:43→17:15)
[2019-06-24] MEDS: hydrALAZINE HCL 50 MG TABLET PO SCH ×3 (08:43→17:13)
[2019-06-24] MEDS: BLOOD SUGAR DIAGNOSTIC 1 EACH STRIP IN SCH ×4 (08:43→22:08)
[2019-06-24] MEDS: MUPIROCIN OINT 2% 22 GM TUBE SCH ×2 (09:33→21:02)
--- NOTE | 2019-06-24 11:30 | NUR ---
MS RN NOTE SEEN BY DR AMARAL , WILL CONT TO MONITOR
[2019-06-24] MEDS: INSULIN REGULAR, HUMAN 100 UNIT/ML 3 ML VIAL SQ PRN ×3 (12:41→22:11)
[2019-06-24] MEDS: CEFTRIAXONE 1 G in IV D5W 50 ML IV SCH (14:21)
--- NOTE | 2019-06-24 14:30 | NUR ---
MS RN NOTE FAMILY AT BEDSIDE, ALL NEEDS ATTENDED ,CALL LIGHT WITHIN REACH
[2019-06-24] MEDS: AZITHROMYCIN 250 MG TABLET PO SCH (15:22)
[2019-06-24] MEDS: LORAZEPAM 0.5 MG TABLET PO PRN ×2 (15:50→22:53)
--- NOTE | 2019-06-24 15:55 | NUR ---
ms rn note feels anxious called to [facility]ah rn health practice manager with order given Ativan 0.5 mg po prn order carried out, family at bed side
--- NOTE | 2019-06-24 18:58 | NUR ---
MS RN NOTE HAVING DINNER , FAMILY AT BEDSIDE, ALL NEEDS ATTENDED ,NOT IN DISTRESS
--- NOTE | 2019-06-24 19:46 | NUR ---
MS RN OPENING NOTES, RECEIVED PATIENT IN BED, RESTING COMFORTABLY. UA AV SHUNT INTACT WITH NO REDNESS, NO SWELLING, OR BLEEDING NOTED AND WITH (+) BRUIT AND THRILL. CONTACT ISOLATION OBSERVED AND MAINTAINED AT ALL TIMES. PATIENT HAS IV ON RH #22, FLUSHING WELL, NO S/S OF INFILTRATION. CALL LIGHT WITHIN REACH. BED IN LOW LOCK SETTING WITH BED ALARM ON AND FUNCTIONING PROPERLY, WILL CONT TO MONITOR CLOSELY
[2019-06-24] MEDS: TAMSULOSIN 0.4 MG CAP.SR.24H PO SCH (22:12)
[2019-06-25] VITALS (7 sets, daily range): BP systolic 112–137; BP diastolic 56–78
[2019-06-25] MEDS: ONDANSETRON HCL/PF 4 MG/2 ML VIAL IVP PRN (01:17)
[2019-06-25 06:42] LABS: BASOPHILS # (AUTO) 0.1 /CMM (0.0-0.2); EOSINOPHILS % (AUTO) 0.1 % (0.0-6.0); HEMATOCRIT 26 % (39-51); HEMOGLOBIN 8.6 g/dL (13.5-17.5); LYMPHOCYTES % (AUTO) 18.8 % (20.0-44.0); MEAN CORPUSCULAR HGB CONC 33 g/dl (31.0-36.0); MEAN CORPUSCULAR VOLUME 92 fL (80-96); MONOCYTES # (AUTO) 0.5 /CMM (0.1-1.30); MONOCYTES % (AUTO) 9.7 % (2.0-12.0); NEUTROPHILS # (AUTO) 3.7 /CMM (1.8-8.9); NEUTROPHILS % (AUTO) 70.4 % (43.0-81.0); PLATELET COUNT (AUTO) 135 /CMM (150-450); RED BLOOD CELL COUNT(AUTO) 2.83 MIL/uL (4.5-6.0); WHITE BLOOD COUNT (AUTO) 5.2 K/uL (4.3-11.0)
--- NOTE | 2019-06-25 06:55 | NUR ---
MS RN CLOSING NOTES, PATIENT IN BED, RESTING. UA AV SHUNT INTACT WITH NO REDNESS, NO SWELLING, OR BLEEDING NOTED. PATIENT IS ON RA TOLERATING WELL, NO SOB OR ACUTE DISTRESS NOTED AT THIS TIME. PATIENT IS ON CONTACT ISOLATION AT ALL TIMES. PATIENT HAS IV ON RH #22, FLUSHING WELL, NO S/S OF INFILTRATION NOTED. VITAL SIGN WNL, PATIENT ON JANITOR SUPERVISOR WITH SR BBB. CALL LIGHT WITHIN REACH. BED IN LOW/LOCK SETTING WITH BED ALARM ON AND FUNCTIONING PROPERLY, WILL ENDORSE THE PATIENT TO AM RN FOR TARAH.
[2019-06-25 07:11] LABS: CARBON DIOXIDE 28 mmol/L (21-32); CHLORIDE 104 mmol/L (98-107); CREATININE 5.5 mg/dL (0.6-1.3); GLUCOSE 164 mg/dL (74-106); MAGNESIUM 2.4 mg/dL (1.8-2.4); PHOSPHORUS 5.2 mg/dL (2.5-4.9); POTASSIUM 5.5 mmol/L (3.5-5.1); SODIUM SERUM 143 mmol/L (136-145); UREA NITROGEN, BLOOD 27 mg/dL (7-18)
--- NOTE | 2019-06-25 07:35 | NUR ---
ATHLETIC COACH OPENING NOTES Received pt in bed, awake, moroccan speaking. Verbally responsive and able to make needs known. Denies any pain or discomfort at the moment. No sob noted. UA AV shunt intact with no redness, no swelling or bleeding note with + bruit and thrill. IV on RH #22, intact and patent.No s/s of infiltration. Will continue to monitor
[2019-06-25] MEDS: BLOOD SUGAR DIAGNOSTIC 1 EACH STRIP IN SCH ×4 (07:45→21:33)
[2019-06-25] MEDS: SEVELAMER CARBONATE 800 MG TABLET PO SCH ×3 (08:57→17:17)
[2019-06-25] MEDS: DOCUSATE SODIUM 100 MG CAPSULE PO SCH ×2 (08:57→17:19)
[2019-06-25] MEDS: ISOSORBIDE DINITRATE (20MG) 20 MG TABLET PO SCH ×2 (08:57→17:23)
[2019-06-25] MEDS: AMLODIPINE BESYLATE 5 MG TABLET PO SCH (08:57)
[2019-06-25] MEDS: ASPIRIN 81 MG TAB.CHEW PO SCH (08:58)
[2019-06-25] MEDS: hydrALAZINE HCL 50 MG TABLET PO SCH ×3 (08:58→17:18)
[2019-06-25] MEDS: LORAZEPAM 0.5 MG TABLET PO PRN ×2 (09:02→21:24)
[2019-06-25] MEDS: MUPIROCIN OINT 2% 22 GM TUBE SCH ×2 (09:04→21:04)
[2019-06-25] MEDS: INSULIN REGULAR, HUMAN 100 UNIT/ML 3 ML VIAL SQ PRN ×3 (09:08→21:34)
[2019-06-25] MEDS: INSULIN GLARGINE, 100 UNIT/ML CARTRIDGE SQ SCH ×3 (09:08→17:56)
[2019-06-25] MEDS ORDERED: EPOETIN ALFA (10,000 UNIT) 10,000 UNIT/ML VIAL IV ONE (11:00)
--- NOTE | 2019-06-25 11:05 | NUR ---
WOUND CARE CONSULT: PT PRESENTS WITH DRY SKIN TO FEET AND LOWER LEGS AND SLIGHT DISCOLORATION OF RT TOENAIL, PRESENT ON ADMISSION. RECOMMENDATIONS MADE FOR SKIN PROTECTION. DISCUSSED WITH NURSING STAFF. PT REFUSED TO TURN FOR FULL SKIN ASSESSMENT OF BACK AND BUTTOCKS. WILL SEE PRN. KEE IN AGREEMENT WITH PLAN OF CARE.
[2019-06-25] MEDS: CEFTRIAXONE 1 G in IV D5W 50 ML IV SCH (15:28)
[2019-06-25] MEDS: AZITHROMYCIN 250 MG TABLET PO SCH (15:38)
--- NOTE | 2019-06-25 17:03 | NUR ---
RN NOTE PER HD NURSE, HEMODIALYSIS FOR PATIENT TODAY IS CANCELLED. WILL HAVE HD TOMORROW AM. DR GIBSON AWARE. WILL NOT ADMINISTER EPOGEN
--- NOTE | 2019-06-25 19:30 | NUR ---
RN OPENING NOTES PATIENT RECEIVED FROM SARAH/SILVESTRE,AT BED SIDE, ASLEEP. NO SIGNS OF RESPIRATORY DISTRESS, NO SHORTNESS OF BREATH NOTED, RESPIRATIONS EVEN AND UNLABORED. TELE READING SR 84. NO SIGNS OF FACIAL GRIMACING INDICATING PAIN OR DISCOMFORT AT THIS TIME. UA AV SHUNT INTACT WITH NO REDNESS, NO SWELLING, OR BLEEDING NOTED AND WITH PRESENT BRUIT AND THRILL. CONTACT ISOLATION OBSERVED AND MAINTAINED AT ALL TIMES. IV SITE RH G22, FLUSHED, INTACT, PATENT, NO SIGNS OF INFECTION/INFILTRATION. SAFETY PRECAUTIONS IMPLEMENTED; CALL LIGHT WITHIN REACH, BED LOW, BED LOCKED, BILATERAL UPPER SIDE RAILS UP. WILL CONTINUE TO MONITOR.
--- NOTE | 2019-06-25 19:31 | NUR ---
ALUMINUM POOL INSTALLER CLOSING NOTES Patient in bed, resting comfortably. No acute distress noted during am shift. Kept clean and dry. Bed in lowest position, locked. Call light within reach. All needs met.Endorsed to PM shift
[2019-06-25] MEDS: TAMSULOSIN 0.4 MG CAP.SR.24H PO SCH (21:18)
[2019-06-25] MEDS ORDERED: PROPOFOL 100 ML ONE (22:37)
[2019-06-26] VITALS: BP 124/60
[2019-06-26] MEDS: HYDROCODONE/APAP 5/325MG 1 EACH TABLET PO PRN (01:42)
[2019-06-26 04:00] VITALS: BP 132/71
[2019-06-26] MEDS: LORAZEPAM 0.5 MG TABLET PO PRN ×2 (04:20→17:53)
--- NOTE | 2019-06-26 06:07 | NUR ---
RN CLOSING NOTES PATIENT IN BED, ASLEEP, EASILY AWAKENED. PATIENT IS ONLY CHINESE SPEAKING. NO SIGNS OF RESPIRATORY DISTRESS, NO SHORTNESS OF BREATH NOTED, RESPIRATIONS EVEN AND UNLABORED. TELE READING SR 80. NO SIGNS OF FACIAL GRIMACING INDICATING PAIN OR DISCOMFORT AT THIS TIME. IV SITE RH G22, FLUSHED, INTACT, PATENT, NO SIGNS OF INFECTION/INFILTRATION. PATIENT KEPT CLEAN DRY AND COMFORTABLE. ALL NEEDS MET ON SHIFT. ALL DUE MEDS GIVEN ORDERED WITH NO ADVERSE EFFECTS. NO SIGNS/SYMPTOMS OF HYPER/HYOGLYCEMIA. PATIENT ON CONTACT ISOLATION AT ALL TIMES. SAFETY PRECAUTIONS IMPLEMENTED; CALL LIGHT WITHIN REACH, BED LOW, BED LOCKED, BILATERAL UPPER SIDE RAILS UP. WILL ENDORSE TO DAY SHIFT NURSE FOR CONTINUITY OF CARE.
--- NOTE | 2019-06-26 07:39 | NUR ---
YOGA INSTRUCTOR NOTE RECEIVED PATIENT IN BED,ALERT ORIENTED ON RA, NO SOB NOTED AT THIS TIME,BED IN LOWEST AND LOCKED POSITION , PLAN OF CARE DISCUSSED WITH PATIENT, ON TELE MONITOR SR HR 82 , RT HAND HL INTACT AND FLUSHED WELL ALL NEEDS ATTENDED SAFETY MEASURES IN PLACED WILL CONT TO MONITOR CLOSELY ,
[2019-06-26] MEDS: BLOOD SUGAR DIAGNOSTIC 1 EACH STRIP IN SCH ×4 (07:42→21:09)
[2019-06-26 08:00] VITALS: BP 126/63
[2019-06-26] MEDS: INSULIN GLARGINE, 100 UNIT/ML CARTRIDGE SQ SCH ×3 (09:00→17:05)
[2019-06-26] MEDS: SEVELAMER CARBONATE 800 MG TABLET PO SCH ×3 (09:20→17:08)
[2019-06-26] MEDS: hydrALAZINE HCL 50 MG TABLET PO SCH ×3 (09:21→16:29)
[2019-06-26] MEDS: ASPIRIN 81 MG TAB.CHEW PO SCH (09:21)
[2019-06-26] MEDS: DOCUSATE SODIUM 100 MG CAPSULE PO SCH ×2 (09:21→16:27)
[2019-06-26] MEDS: AMLODIPINE BESYLATE 5 MG TABLET PO SCH (09:22)
[2019-06-26] MEDS: ISOSORBIDE DINITRATE (20MG) 20 MG TABLET PO SCH ×2 (09:22→16:27)
[2019-06-26] MEDS: MUPIROCIN OINT 2% 22 GM TUBE SCH ×2 (09:24→21:09)
--- NOTE | 2019-06-26 09:28 | NUR ---
RN NOTES HELD LANTUS BLOOD SUGAR 86 MG/DL. PT DIDN'T FEEL LIKE EATING AT THE MOMENT
--- NOTE | 2019-06-26 11:34 | NUR ---
WOUND CARE: PT TURNED FOR FULL SKIN ASSESSMENT AND NOTED TO HAVE INTACT SKIN TO BACK, SACRUM AND BUTTOCKS. PT AMBULATES TO BATHROOM PER NURSING STAFF. WILL SEE PRN.
[2019-06-26 12:00] VITALS: BP 133/64
[2019-06-26] MEDS: INSULIN REGULAR, HUMAN 100 UNIT/ML 3 ML VIAL SQ PRN ×3 (12:55→21:08)
--- NOTE | 2019-06-26 14:00 | NUR ---
MS RN NOTE HD STARTED ORDERED ALSO JANELLE JOSE HOG WORKER AT [employer] AWARE THAT BLOOD SUGAR 86MG\DL EARLIER, ON LANTUS 20 UNITS TID , STATED TID HOLD NEXT TIME .WILL MONITOR
--- NOTE | 2019-06-26 14:52 | NUR ---
TELE RNNOTE ON HD AT THIS TIME, NOT IN DISTRESS
[2019-06-26 16:00] VITALS: BP 134/63
[2019-06-26] MEDS: CEFTRIAXONE 1 G in IV D5W 50 ML IV SCH (16:18)
[2019-06-26] MEDS: AZITHROMYCIN 250 MG TABLET PO SCH (16:27)
--- NOTE | 2019-06-26 16:30 | NUR ---
MS RN NOTE HD COMPLETED 1500 ML OF FLUIDS REMOVED NOT IN DISTRESS
--- NOTE | 2019-06-26 17:21 | NUR ---
MS RN NOTE PER FAMILY STATED THAT PATIENT DONT WONT TO BE DISCHARGE TODAY, FEELS WEAK AFTER HD AND FEEL TIRED, WANTS TO BE DISCHARGE TOMORROW, SPOKE WITH MUSTAPHA JOSE NUTRITIONAL CHEMIST STATED ITS OK TO GO HOME TOMORROW
--- NOTE | 2019-06-26 18:29 | NUR ---
RN MS CLOSING NOTES HD done, removed 1500L. Tolerated well the procedure but complained of feeling weak and became anxious after HD. Administered Ativan. Pt is now resting in bed with son at bedside. Vital signs wnl. No sob noted. Denies any pain or discomfort. Saline Lock on R hand #22. No signs of infiltration. All needs met. Bed in lowest position, locked. Call light within reach. Pending DC please follow up in AM. Will endorse to PM shift.
[2019-06-26 20:00] VITALS: BP 120/66
--- NOTE | 2019-06-26 20:00 | NUR ---
MS RN NOTE PT IN BED AWAKE, COVERING HIS FACE WITH BLANKET, A/O X 4 DJIBOUTIAN SPEAKING. SON AT BED SIDE. REMAIN IN ISOLATION FOR MRSA NARES, ISOLATION PRECAUTIONS TAKEN. NO DISTRESS OR DISCOMFORT NOTED. DENIES PAIN. RT HAND WITH SL #22 G, INTACT AND PATENT. NO S/S OF HYPO OR HYPERGLYCEMIA NOTED. SIDE RAILS UP X 2 AND CALL LIGHT WITHIN REACH. VSS. CONTINUE TO MONITOR HIM.
[2019-06-26] MEDS: TAMSULOSIN 0.4 MG CAP.SR.24H PO SCH (21:05)
[2019-06-27 04:00] VITALS: BP 150/74
--- NOTE | 2019-06-27 04:00 | NUR ---
MS RN NOTE PT IN BED AWAKE. SLEEPING ON AND OFF. PT IS DRESSED AND VERBALIZING, HE DON'T KNOW WHERE HE IS AT WHEN WOKEN UP AND WISHED HE CAN GO HOME. NO SUICIDAL IDEATION AT THIS TIME. CONTINUE TO MONITOR HIM CLOSELY.
--- NOTE | 2019-06-27 06:34 | NUR ---
MS RN NOTE PT IN BED AWAKE. NO SOB, NO DISTRESS OR DISCOMFORT NOTED. DENIES PAIN. SIDE RAILS UP X 2 AND CALL LIGHT WITHIN REACH. WILL ENDORSE TO DAY SHIFT NURSE FOR CONTINUE TO CARE.
[2019-06-27] MEDS: LORAZEPAM 0.5 MG TABLET PO PRN (06:40)
--- NOTE | 2019-06-27 06:42 | NUR ---
MS RN NOTE PT BECOME RESTLESS AND ASKING FOR HIS SON, BECOME VERY RESTLESS. ATIVAN 0.5 MG PO GIVEN. WILL ENDORSE TO DAY SHIFT NURSE TO MONITOR . SON ALSO JUST CAME TO VISIT HIM.
[2019-06-27 07:46] LABS: BASOPHILS % (AUTO) 0.7 % (0.0-2.0); EOSINOPHILS % (AUTO) 0.1 % (0.0-6.0); HEMATOCRIT 27 % (39-51); HEMOGLOBIN 8.9 g/dL (13.5-17.5); LYMPHOCYTES # (AUTO) 1.3 /CMM (0.8-4.8); LYMPHOCYTES % (AUTO) 19.4 % (20.0-44.0); MEAN CORPUSCULAR HGB CONC 33 g/dl (31.0-36.0); MEAN CORPUSCULAR VOLUME 91 fL (80-96); MONOCYTES # (AUTO) 0.5 /CMM (0.1-1.30); MONOCYTES % (AUTO) 8.2 % (2.0-12.0); NEUTROPHILS # (AUTO) 4.7 /CMM (1.8-8.9); NEUTROPHILS % (AUTO) 71.6 % (43.0-81.0); PLATELET COUNT (AUTO) 147 /CMM (150-450); RED BLOOD CELL COUNT(AUTO) 2.93 MIL/uL (4.5-6.0); WHITE BLOOD COUNT (AUTO) 6.6 K/uL (4.3-11.0)
[2019-06-27 08:00] VITALS: BP 158/76
[2019-06-27 08:07] LABS: CALCIUM, SERUM 9.3 mg/dL (8.5-10.1); CARBON DIOXIDE 26 mmol/L (21-32); CHLORIDE 101 mmol/L (98-107); CREATININE 6.5 mg/dL (0.6-1.3); GLUCOSE 100 mg/dL (74-106); MAGNESIUM 2.5 mg/dL (1.8-2.4); PHOSPHORUS 5.1 mg/dL (2.5-4.9); POTASSIUM 5.2 mmol/L (3.5-5.1); SODIUM SERUM 142 mmol/L (136-145); UREA NITROGEN, BLOOD 32 mg/dL (7-18)
[2019-06-27] MEDS: BLOOD SUGAR DIAGNOSTIC 1 EACH STRIP IN SCH (08:22)
[2019-06-27] MEDS: hydrALAZINE HCL 50 MG TABLET PO SCH (09:49)
[2019-06-27] MEDS: SEVELAMER CARBONATE 800 MG TABLET PO SCH (09:49)
[2019-06-27] MEDS: ASPIRIN 81 MG TAB.CHEW PO SCH (09:50)
[2019-06-27] MEDS: DOCUSATE SODIUM 100 MG CAPSULE PO SCH (09:50)
[2019-06-27] MEDS: AMLODIPINE BESYLATE 5 MG TABLET PO SCH (09:50)
[2019-06-27 09:51] VITALS: BP 158/76
[2019-06-27] MEDS: ISOSORBIDE DINITRATE (20MG) 20 MG TABLET PO SCH (09:51)
[2019-06-27] MEDS: INSULIN GLARGINE, 100 UNIT/ML CARTRIDGE SQ SCH (09:58)
[2019-06-27] MEDS: MUPIROCIN OINT 2% 22 GM TUBE SCH (09:59)
[2019-06-27] MEDS ORDERED: Lorazepam PO (10:24)
[2019-06-27] MEDS ORDERED: AMOX1TAB16 PO (10:24)
[2019-06-27] MEDS ORDERED: AZIT250T PO (10:24)
--- NOTE | 2019-06-27 12:22 | NUR ---
Discharge note Pt discharged home with home health. All discharge teaching performed, pt and family verbalized understanding with use of strip mill operator. Dc instructions and belongings sheet were signed, copied and placed in chart. New prescriptions given to pt with med education and teaching performed. IV and ID band removed. Prior to exiting hospital, pt was asked to take photos of documented skin care ( Right foot and Right knee) however pt by this time was already dressed, pt refusal for wound photo documentation noted. VSS, breathing even/unlabored, o2 sat wnl. Pt left hospital in private vehicle with family member.
== END 2019-06-27 12:28 | disposition home health service (06) | DRG 291 ==
LOC: ER 07:07 → TELE1 09:50 → MEDSG1 06-24 12:20 → TELE1 06-24 20:19 → MEDSG1 06-26 10:41
PROVIDERS: ADMIT Nurse Practitioner Acute Care; ATTEND Hospitalist
PROC: 5A1D70Z Performance of Urinary Filtration, Intermittent, Less than 6 Hours Per Day (ICD-10-PCS; principal; 2019-06-23)
DX: I13.2 Hypertensive heart and chronic kidney disease with heart failure and with stage 5 chronic kidney disease, or end stage renal disease (principal); J15.9 Unspecified bacterial pneumonia; I50.33 Acute on chronic diastolic (congestive) heart failure; N18.6 End stage renal disease; E87.1 Hypo-osmolality and hyponatremia; J90 Pleural effusion, not elsewhere classified; I25.10 Atherosclerotic heart disease of native coronary artery without angina pectoris; E87.5 Hyperkalemia; E11.22 Type 2 diabetes mellitus with diabetic chronic kidney disease; E03.9 Hypothyroidism, unspecified; E78.5 Hyperlipidemia, unspecified; Z79.899 Other long term (current) drug therapy; Z79.4 Long term (current) use of insulin; Z99.2 Dependence on renal dialysis; Z95.1 Presence of aortocoronary bypass graft; F41.9 Anxiety disorder, unspecified; N40.0 Benign prostatic hyperplasia without lower urinary tract symptoms; D64.9 Anemia, unspecified; D63.8 Anemia in other chronic diseases classified elsewhere; E83.9 Disorder of mineral metabolism, unspecified; Z22.322 Carrier or suspected carrier of Methicillin resistant Staphylococcus aureus
CPT/HCPCS: 36415; 71045-TC; 80048-TC; 80061-TC; 80076-TC; 82962-TC; 83735-TC; 83880; 84100-TC; 84443-TC; 84484-TC; 85025-TC; 85730-TC; 87081-TC; 90935-TC; 94799-TC; 97110-TC; 97112-TC; 97116-TC; 97530-TC; A6403; G0378; J0456; J0696; J0885; J1815; J2405; J3490; J7030; J7050; J7060